=== PATIENT | female | born 1990 | race Caucasian/White ===

== ENCOUNTER 2017-09-30 08:18 | Inpatient (IN) ==
--- OUTSIDE RECORDS SUMMARY | 2017-09-30 08:29 | External Medical Summary | Continuity of Care Document ---
:1990 Author Organization [facility] Address [address] [place], [place] [address] Phone Allergies, Adverse Reactions, Alerts Substance Reaction Severity Status No Known Drug Allergies Unknown Active Medications Medication Instructions Dosage Effective Dates Status Comments (start - stop) + DHA 28 take 1 by oral route Not Available - Active mg iron-800 every day mcg-200 mg oral pack Problems Condition Effective Dates (start - stop) Clinical Status Irregular Menses - Encounter for suprvsn of normal - , third trimester 30 weeks gestation of - Irregular Menses Irregular Menses - Less than 8 weeks gestation of - Supervision of other high risk - pregnancies, first trimester 13 weeks gestation of - Supervision of other high risk - pregnancies, first trimester 13 weeks gestation of - Supervision of other high risk - pregnancies, first trimester Pap Smear Screening, Cervix - 10 weeks gestation of - Supervision of other high risk - pregnancies, second trimester 19 weeks gestation of - Supervision of other high risk - pregnancies, third trimester 33 weeks gestation of - Encounter for initial prescription of injectable contracep Encounter for test, result - negative Encounter for suprvsn of normal - , second trimester 19 weeks gestation of - Encounter for suprvsn of normal - , second trimester 24 weeks gestation of - Encounter for suprvsn of normal - , second trimester 17 weeks gestation of - Encounter for suprvsn of normal - , third trimester 33 weeks gestation of - Encntr for suprvsn of normal , unsp, unsp trimester Encntr for suprvsn of normal , unsp, unsp trimester Anxiety Disorder Active Procedures Procedure Date Unknown Results Test Name Date and Time Measure Units Reference Range Abnormal Flag Comments Unknown Advance Directives Directive Yes / No Effective Date File Name Unknown Encounters Encounter Practice Location Reason(s) Diagnoses Date Provider Care Team Description For Visit Members Cristopher Triana Encounter for Aug-0 Lianne Referring In Womens suprvsn of normal 7-201 Radha. Provider: Health PA, , third 8 700 Radha [address] [email or web address] weeks Medical Lianne L, 1522, gestation of [address] [place], 120, [place] , [place] [facility] 120, [place], [place], tel:[phone] [place], , [place]. [id number]. tel: tel: [phone] Cristopher [place] Supervision of Aug-0 Lianne In Womens Ultrasound other high risk 7-201 Radha. Health PA, pregnancies, 8 700 PO Box third [email or web address] Medical 1522, weeks gestation [facility] [place], 120, [id number], [place], [place], tel: [phone] , [place]. tel: [phone] Cristopher [place] Jul-3 Lianne In Womens 0-201 Radha. Health PA, 8 700 PO Box Medical 1522, [facility], [place], 120, [id number], [place], [place], tel:[phone] , [place]. tel: [phone] Cristopher Traina Encounter for Jul-1 Lianne In Womens suprvsn of normal 9-201 Radha. Health PA, , third 8 700 PO Box [email or web address] weeks Medical 1522, gestation of [facility] [place], 120, [id number], [place], tel:[phone] , [place]. tel: [phone] Cristopher [place] Encounter for Dec-0 Lianne In Womens suprvsn of normal 6-201 Radha. Health PA, , second 7 700 PO Box [email or web address] weeks Medical 1522, gestation of [facility], [place], 120, [id number], [place], tel:[phone] , [place]. tel: [phone] Cristopher [place] Encounter for Nov-0 Lianne Referring In Womens suprvsn of normal 1-201 Radha. Provider: Health PA, , second 7 700 Radha PO Box [email or web address] weeks Medical Lianne L, 1522, gestation of [address], [place], 120, [place] [id number], [place] [facility] 120, [place], tel:[phone] [place], , [place]. [id number]. tel: tel: [phone] Cristopher [place] Supervision of Nov-0 Lianne In Womens Ultrasound other high risk 1-201 Radha. Health PA, pregnancies, 7 700 PO Box second Medical 1522, [email or web address] weeks [facility], gestation of [place], 120, [id number], [place], [place], tel:[phone] , [place]. tel: [phone] Cristopher [place] Encounter for Oct-1 Lianne Referring In Womens suprvsn of normal 8-201 Radha. Provider: Health MICAELA, , second 7 700 Radha PO Box [email or web address] weeks Medical Lianne L, 1522, gestation of [address], [place], 120, [place] [id number], [place] [facility] 120, [place], tel:[phone] [place], , [place]. [id number]. tel: tel:[phone] Cristopher [place] Supervision of Sep-1 Lianne Referring In Womens other high risk 8-201 Radha. Provider: Health MICAELA, pregnancies, 7 700 Radha PO Box first [email or web address] Medical Lianne L, 1522, weeks gestation Center [address] [place] [address], of [place], 120, Center [id number], [place], [facility] 120, [place], tel:[phone] [place], , [place]. [id number]. tel: tel:[phone] Cristopher [place] Supervision of Lianne Referring In Womens Ultrasound other high risk 8-201 Radha. Provider: Health PA, pregnancies, 7 700 Radha PO Box first [email or web address] Medical Lianne L, 1522, weeks gestation Center [address] [place] [address], of [place], 120, Center [id number], [place] [facility] 120, [place], tel:[phone] [place], , [place]. [id number]. tel: tel:[phone] Cristopher [place] Supervision of Lianne Referring In Womens other high risk 0-201 Radha. Provider: Health PA, pregnancies, 7 700 Radha PO Box first Medical Lianne L, 1522, trimesterPap Center [address] [place] [address], Smear Screening, [place], [email or web address] weeks 120, Center [id number], gestation of [place] [facility] 120, [place], tel:[phone] [place], , [place]. [id number]. tel: tel:[phone] Cristopher [place] Irregular Menses [place] Referring In Womens -201 Isidra. Provider: Health MICAELA, 7 700 Radha PO Box Medical Lianne L, 1522, Center [address] [place] [address], [place], 120, Center [id number], [place] [facility] 120, [place], tel:[phone] [place], , [place]. [id number]. tel: tel:[phone] Cristopher [place] Irregular Lianne Referring In Womens Ultrasound MensesLess than 8 -201 Radha. Provider: Health PA, weeks gestation 7 700 Radha PO Box of Medical Lianne L, 1522, Center [facility] Dr Mili, [facility] [place], 120, Center [id number], [place], [facility] 120, [place], tel:[phone] [place], , [place]. [id number]. tel: tel: [phone] Associates [place] Irregular Menses Johann-2 Lianne In Womens 4-201 Radha. Health MICAELA, 7 700 PO Box Medical 1522, [place] [address] [place], [facility] [place], 120, [id number], [place], [place], tel:[phone] , [place]. tel: [phone] [facility] [place] Encntr for Johann-2 Lianne In Womens suprvsn of normal 0-201 Radha. Health MICAELA, , unsp, 7 700 PO Box unsp trimester Medical 1522, [place] [address] [place], [facility], 120, , [place], [place], tel:[phone] , [place]. tel: [phone] [facility] [place] Encntr for Johann-1 Norton Referring In Womens suprvsn of normal 7-201 Isidra. Provider: Health MICAELA, , unsp, 7 700 Radha PO Box unsp trimester Medical Lianne L, 1522, Center [address], [facility], 120, [place] [id number], [place], [facility] 120, [place], tel:[phone] [place], , [place]. [id number]. tel: tel: [phone] Associates [place] Encounter for Johann-0 Norton Referring In Womens initial 5-201 Isidra. Provider: Health MICAELA, prescription of 6 700 Isidra PO Box injectable Medical Errol J, 1522, [facility] Center [facility] berta Garces for , [facility], test, result 120, Center [id number], negative [place], [facility] 120, [place], tel:[phone] [place], , [place]. [id number]. tel: tel:[phone] [facility] [employer] 9-201 [facility], [address], [place], [place], [place], [place], [id number], , [place]. [place] tel: tel:[phone] Family History Family Member Diagnosis Age At Onset No family history of Colon Cancer No family history of Ovarian Cancer Mother Hypertension Maternal Grandmother Cardiovascular Disease Maternal Grandmother Diabetes mellitus Maternal Grandmother Hypertension Maternal Grandmother Stroke Paternal Grandmother Diabetes mellitus Mother Diabetes mellitus No family history of Breast Cancer No family history of Epilepsy Maternal Grandmother Renal disease No family history of Pulmonary Embolism No family history of Venous Thrombosis No family history of Lung Disease Sister Thyroid Disorder No family history of Osteoporosis Immunizations Vaccine Date Status Comments Tdap completed Source: New Immunization Record Influenza, injectable, completed Source: New Immunization Record quadrivalent, preservative free, 3 yrs or older Payers Payer name Insurance type Covered republican ID Authorization(s) [employer] - Medicaid [place] [id number] [employer] - [place] [id number] [employer] - Medicaid [place] [id number] Social History Type Description Quantity Date Captured Alcohol Use Details No Caffeine Use Details Unknown Tobacco Use Status Unknown Smoking Status Never smoker Vital Signs Date / Height Weight BMI Pulse Blood Temperature Respiratory Body Head BMI Time: Rate Pressure Rate Surface Circumference percentile Area Unknown Chief Complaint And Reason For Visit Unknown Chief Complaint And Reason For Visit Reason For Referral Reason For Referral Unknown Plan Of Care Date Type Action Status Goal Lifestyle education regarding completed diet Goal Lifestyle education regarding completed diet Appointment Alisa Velazquez BOOKED Appointment Alisa Velazquez BOOKED Future Order: Radiology Order Nuchal Translucency ([id number]) Ordered Future Order: Radiology Order Complete OB Ultrasound > 14 Ordered Weeks ([id number]) Future Order: Radiology Order Ultrasound OB Follow-up ([id number]) Ordered Date Type Problem Goal Intervention Status Start Date Unknown. History Of Present Illness Encounter Date Complaint History Of Present Illness This patient has no known history of present illness Functional Status Encounter Date Functional Assessment Cognitive Assessment Unknown Medications Administered Medication Instructions Dosage Effective Dates (start - stop) Status Comments Drug Treatment Unknown Instructions Date Instruction Additional Information HIV and other routine tests risk factors identified by history anticipated course of care nutrition and weight gain counseling, special diet toxoplasmosis precautions (cats / raw meat) sexual activity exercise indications for ultrasound influenza vaccine environmental / work hazards travel tobacco (ask, advise, assess, assist and arrange) alcohol illicit / recreational drugs use of any medications (including supplements, vitamins, herbs, OTC drugs) smoking counseling domestic violence seat belt use childbirth classes / hospital facilities hospital registration genetic testing new ob handbook Giving encouragement to exercise Related to Body mass index 30.0-30.9 Lifestyle education regarding diet Related to Body mass index 30.0-30.9 Giving encouragement to exercise Related to Body mass index 30.0-30.9 Lifestyle education regarding diet Related to Body mass index 30.0-30.9
--- OUTSIDE RECORDS SUMMARY | 2017-09-30 08:29 | External Medical Summary | Continuity of Care Document ---
:1990 Author Organization [facility] Address [address] [place], [place] [address] Phone Allergies, Adverse Reactions, Alerts Substance Reaction Severity Status No Known Drug Allergies Unknown Active Medications Medication Instructions Dosage Effective Dates (start - Status Comments stop) ORAL TABLET - Active Problems Condition Effective Dates (start - stop) Clinical Status Irregular Menses - Encounter for suprvsn of normal - , second trimester 19 weeks gestation of - Irregular Menses Irregular [...] 19 weeks gestation of - Encounter for initial prescription of injectable contracep Encounter for test, result - negative Encounter for suprvsn of normal - , second trimester 17 weeks gestation of - Encntr for suprvsn of normal , unsp, unsp trimester Encntr for suprvsn of normal , unsp, unsp trimester Anxiety Disorder Active Procedures Procedure Date OB Visit No Charge Immuniz admnin, 1 vac, sngl/combo 19 Yrs + Flu Vaccine - Quadrivalent Results Test Name Date and Time Measure Units Reference Range Abnormal Flag Comments Unknown Advance Directives Directive Yes / No Effective Date File Name Unknown Encounters Encounter Practice Location Reason(s) Diagnoses Date Provider Care Team Description For Visit Members Crsitopher Triana Encounter for Nov-0 Lianne Referring In Womens suprvsn of normal 1-201 Radha. Provider: Yossi HINOJOSA, , second 7 700 Radha PO Box [email or web address] weeks Medical Lianne L, 1522, gestation of Center [address] [place] [address], [place], 120, [place] , [place] [facility] 120, [place], tel:[phone] [place], , [place]. [id number]. tel: tel:[phone] Cristopher Tri[place] Supervision of Nov-0 Lianne In Womens Ultrasound other high risk 1-201 Radha. Health MICAELA, pregnancies, 7 700 PO Box second Medical 1522, [email or web address] weeks [facility], gestation of [place], 120, [id number], [email or web address]], tel:[phone] , [place]. tel: [phone] Cristopher [place] Encounter for Oct-1 Lianne Referring In Womens suprvsn of normal 8-201 Radha. Provider: Yossi HINOJOSA, , second 7 700 Radha PO Box [email or web address] weeks Medical Lianne L, 1522, gestation of Center [address] [place] [address], [place], 120, [place] [id number], [place] [facility] 120, [place], tel:[phone] [place], , [place]. [id number]. tel: tel:[phone] Cristopher [place] Supervision of Sep-1 Lianne Referring In Womens other high risk 8-201 Radha. Provider: Health MICAELA, pregnancies, 7 700 Radha PO Box first [email or web address] Medical Lianne L, 1522, weeks gestation Center [address] [place] [address], of [place], 120, Center [id number], [place] [facility] 120, [place], tel:[phone] [place], , [place]. [id number]. tel: tel:[phone] Cristopher [place] Supervision of Lianne Referring In Womens Ultrasound other high risk 8-201 Radha. Provider: Health MICAELA, pregnancies, 7 700 Radha PO Box first [email or web address] Medical Lianne L, 1522, weeks gestation Center [address] [place], of , [place], 120, Center [id number], [place], [facility] 120, [place], tel: [phone] [place], , [place]. [id number]. tel: tel:[phone] Cristopher [place] Supervision of Lianne Referring In Womens other high risk 0-201 Radha. Provider: Health MICAELA, pregnancies, 7 700 Radha PO Box first Medical Lianne L, 1522, trimesterPap Center [address] [place] [address], Smear Screening, , [facility] [place], [id number] weeks 120, Center [id number], gestation of [place], [facility] 120, [place], tel:[phone] [place], , [place]. [id number]. tel: tel:[phone] [facility] [place] Irregular Menses [place] Referring In Womens -201 Isidra. Provider: Yossi HINOJOSA, 7 700 Radha PO Box Medical Lianne L, 1522, Center [facility] Dr M[place], [facility] [place], 120, Center [id number], [place], [facility] 120, [place], tel:[phone] [place], , [place]. [id number]. tel: tel:[phone] Cristopher Tri[place] Irregular Lianne Referring In Womens Ultrasound MensesLess than 8 - Radha. Provider: Yossi HINOJOSA, weeks gestation 7 700 Radha PO Box of [place] Abdalla L, 1522, Center [facility] Dr Mili, [facility] [place], 120, Center [id number], [place], [facility] 120, [place], tel:[phone] [place], , [place]. [id number]. tel: tel:[phone] Cristopher [place] Irregular Menses Johann-2 Lianne In Womens 4-201 Radha. Health PA, 7 700 PO Box Medical 1522, [place] Dr [place], [facility] [place], 120, [id number], [place], [place], tel: [phone] , [place]. tel: [phone] [facility] [place] Encntr for Johann-2 Lianne In Womens suprvsn of normal 0-201 Radha. Health PA, , unsp, 7 700 PO Box unsp trimester Medical 1522, [place] Dr [place], [facility] [place], 120, [id number], [place], [place], tel: [phone] , [place]. tel: [phone] [facility] [place] Encntr for Johann-1 [place] Referring In Womens suprvsn of normal 7-201 Isidra. Provider: Health MICAELA, , unsp, 7 700 Radha PO Box unsp trimester Medical Lianne L, 1522, [place] [address] [address] Mili, [facility], 120, [place] , [place], [facility] 120, [place], tel: [phone] [place], , [place]. [id number]. tel: tel: [phone] [facility] [place] Encounter for Johann-0 Norton Referring In Womens initial 5-201 Isidra. Provider: Health PA, prescription of 6 700 Isidra PO Box injectable Medical Errol J, 1522, [facility] Center [facility] [place], berta for , [facility], test, result 120, [place] , negative [place] [facility] 120, [place], tel: [phone] [place], , [place]. [id number]. tel: tel: [phone] [facility] [place] Feb- Nicole In Womens 9-201 Pollo. Health PA, 1 3232 [address] Maxim, 1522, [place], [place], [place], [place], [id number], , [place]. [place] tel: tel:[phone] Family History Family Member Diagnosis Age At [...] of Osteoporosis Immunizations Vaccine Date Status Comments Influenza, injectable, completed Source: New Immunization Record quadrivalent, preservative free, 3 yrs or older Payers Payer name Insurance type Covered constitution party ID Authorization(s) [employer] - Medicaid [place] [id number] [employer] - Medicaid [place] [id number] Social History Type Description Quantity Date Captured Alcohol Use Details No Caffeine Use Details Unknown Tobacco Use Status Unknown Smoking Status Never smoker Vital Signs Date / Height Weight BMI Pulse Blood Temperature Respiratory Body Head BMI Time: Rate Pressure Rate Surface Circumference percentile Area 174.20 28.1 115/ lbs 1 mm[Hg] 1:15 kg/m PM eter (2) Chief Complaint And Reason For Visit Unknown Chief Complaint And Reason For Visit Reason For Referral Reason For Referral Unknown Plan Of Care Date Type Action Status Goal Lifestyle education regarding completed diet Goal Lifestyle education regarding completed diet Appointment Alisa Velazquez BOOKED Future Order: Radiology Order Nuchal Translucency ([id number]) Ordered Future Order: Radiology Order Complete OB Ultrasound > 14 Ordered Weeks ([id number]) Date Type Problem Goal Intervention Status Start [...]
--- OUTSIDE RECORDS SUMMARY | 2017-09-30 08:29 | External Medical Summary | Continuity of Care Document ---
:1990 Author Organization [facility] Address [address] [place], [place] [id number] Phone Allergies, Adverse Reactions, Alerts Substance Reaction Severity Status No Known Drug Allergies Unknown Active Medications Medication Instructions Dosage Effective Dates (start - Status Comments stop) ORAL TABLET - Active Problems Condition Effective Dates (start - stop) Clinical Status Irregular Menses - Supervision of other high risk - [...] Cervix - 10 weeks gestation of - Encounter for initial [...] trimester Anxiety Disorder Active Procedures Procedure Date Ultrasound exam of preg uterus, complete Results Test Name Date and Time Measure Units Reference Range Abnormal Flag Comments Unknown Advance Directives Directive Yes / No Effective Date File Name Unknown Encounters Encounter Practice Location Reason(s) Diagnoses Date Provider Care Team Description For Visit Members Cristopher [place] Encounter for Nov-0 Lianne Referring In Womens suprvsn of normal 1-201 Radha. Provider: Yossi HINOJOSA, , second 7 700 Radha [address] [email or web address] weeks Medical Lianne L, 1522, gestation of Center [address] [place] [address], [place], 120, Center , [place], [facility] 120, [place], tel:[phone] [place], , [place]. [id number]. tel: tel:[phone] Cristopher [place] Supervision of Nov-0 Lianne In Womens Ultrasound other high risk 1-201 Radha. Health MICAELA, pregnancies, 7 700 PO Box second Medical 1522, [email or web address] weeks [facility], gestation of [place], 120, [id number], [place], [place], tel:[phone] , [place]. tel: [phone] Cristopher [place] Encounter for Oct-1 Lianne Referring In Womens suprvsn of normal 8-201 Radha. Provider: Yossi HINOJOSA, , second 7 700 Radha PO Box [email or web address] weeks Medical Lianne L, 1522, gestation of [address], [place], 120, [place] [id number], [place] [facility] 120, [place], tel:[phone] [place], , [place]. [id number]. tel: tel:[phone] Cristopher [place] Supervision of Sep-1 Lianne Referring In Womens other high risk 8-201 Radha. Provider: Health MICAELA, pregnancies, 7 700 Radha PO Box first [email or web address] Medical Lianne L, 1522, weeks gestation [address], of [place], 120, [place] [id number], [place], [facility] 120, [place], tel:[phone] [place], , [place]. [id number]. tel: tel:[phone] Cristopher [place] Supervision of Sep-1 Lianne Referring In Womens Ultrasound other high risk 8-201 Radha. Provider: Health MICAELA, pregnancies, 7 700 Radha PO Box first [email or web address] Medical Lianne L, 1522, weeks gestation [facility] [place], of , [facility] [place], 120, Center [id number], [place], [facility] 120, [place], tel:[phone] [place], , [place]. [id number]. tel: tel:[phone] Cristopher [place] Supervision of Lianne Referring In Womens other high risk 0-201 Radha. Provider: Health MICAELA, pregnancies, 7 700 Radha PO Box first Medical Lianne L, 1522, trimesterPap Center [facility] [place], Smear Screening, , [facility] [place], [email or web address] weeks 120, Center , gestation of [place], [facility] 120, [place], tel:[phone] [place], , [place]. [id number]. tel: tel:[phone] Associates [place] Irregular Menses Norton Referring In Womens 1-201 Isidra. Provider: Yossi HINOJOSA, 7 700 Radha PO Box Medical Lianne L, 1522, Center [address], [place] [facility], 120, Center [id number], [place] [facility] 120, [place], tel:[phone] [place], , [place]. [id number]. tel: tel:[phone] Associates [place] Irregular 3 Lianne Referring In Womens Ultrasound MensesLess than 8 -201 Radha. Provider: Yossi HINOJOSA, weeks gestation 7 700 Radha PO Box of Medical Lianne L, 1522, Center [facility] Dr Mili, [place] [facility], 120, Center [id number], [place], [facility] 120, [place], tel:[phone] [place], , [place]. [id number]. tel: tel:[phone] Associates [place] Irregular Menses Jan-2 Lianne In Womens 4-201 Radha. Health PA, 7 700 PO Box Medical 1522, [place] Dr Mili, [facility] [place], 120, [id number], [place], [place], tel: [phone] , [place]. tel: [phone] Cristopher [place] Encntr for Johann-2 Lianne In Womens suprvsn of normal 0-201 Radha. Health PA, , unsp, 7 700 PO Box unsp trimester Medical 1522, [place] Dr Mili, [facility], 120, [id number], [place], [place], tel: [phone] , [place]. tel: [phone] Cristopher [place] Encntr for Johann-1 Norton Referring In Womens suprvsn of normal 7-201 Isidra. Provider: Health PA, , unsp, 7 700 Radha PO Box unsp trimester Medical Lianne L, 1522, [place] [address] Dr Mili, [place] [facility], 120, [place] , [place] [facility] 120, [place], tel: [phone] [place], , [place]. [id number]. tel: tel: [phone] Cristopher [place] Encounter for Johann-0 Norton Referring In Womens initial 5-201 Isidra. Provider: Health PA, prescription of 6 700 Isidra PO Box injectable Medical Norton J, 1522, [facility] Center [address] [place] [address], for , [place] [facility], test, result 120, [place] , negative [place] [facility] 120, [place], tel: [phone] [place], , [place]. [id number]. tel: tel: [phone] [facility] Feb- [place] In Womens 9-201 Pollo. Health PA, [address], 1522, [place], [id number] , , [place]. [place] tel: tel: [phone] Family History Family Member Diagnosis Age At [...] Authorization(s) [employer] - Medicaid [place] [id number] [employer] - Medicaid [place] [id number] Social History Type Description Quantity Date Captured Unknown Vital Signs Date / Height Weight BMI [...] Alisa Velazquez BOOKED Future Order: Radiology Order Complete OB Ultrasound > 14 Ordered Weeks ([id number]) Future Order: Radiology Order Nuchal Translucency ([id number]) Ordered Date Type Problem Goal Intervention Status [...]
--- OUTSIDE RECORDS SUMMARY | 2017-09-30 08:32 | External Medical Summary | Continuity of Care Document ---
:1990 Author Organization [facility] Address [address] [place], [place] [id number] Phone Allergies, Adverse Reactions, Alerts Substance Reaction [...] 33 weeks gestation of - Encounter for suprvsn [...] suprvsn of normal - , third trimester 35 weeks gestation of - Encntr for suprvsn of normal , unsp, unsp trimester Encntr for suprvsn of normal , unsp, unsp trimester Anxiety Disorder Active Procedures Procedure Date OB Visit No Charge - COATER SLATE Immuniz admnin, 1 vac, sngl/combo 19 Yrs + TDAP VACCINE >7 IM Results Test Name Date and Time Measure Units Reference Range Abnormal Flag Comments Unknown Advance Directives Directive Yes / No Effective Date File Name Unknown Encounters Encounter Practice Location Reason(s) Diagnoses Date Provider Care Team Description For Visit Members Cristopher [place] Encounter for b-2 Lianne In Womens suprvsn of normal 1-201 Radha. Health MICAELA, , third 8 700 PO Box [email or web address] weeks Medical 1522, gestation of [facility] [place], 120, [id number], [facility], tel: [phone] , [place]. tel: [phone] Cristopher [place] Encounter for Feb-0 Lianne Referring In Womens suprvsn of normal 7-201 Radha. Provider: Health MICAELA, , third 8 700 Radha PO Box [email or web address] weeks Medical Lianne L, 1522, gestation of [address] [place], 120, [place] , [place] [address], [place], tel: [phone] [place] [phone] , . [id number]. tel: tel: [phone] Cristopher [place] Supervision of Feb-0 Lianne In Womens Ultrasound other high risk 7-201 Radha. Health PA, pregnancies, 8 700 PO Box third [email or web address] Medical 1522, weeks gestation [facility] [place], 120, [id number], [facility] [place], tel:+ [phone] , [place]. tel: [phone] Cristopher [place] Encounter for Prudencio-1 Lianne In Womens suprvsn of normal 9-201 Radha. Health PA, , third 8 700 PO Box [email or web address] weeks Medical 1522, gestation of [facility] [place], 120, [id number], [place], [place], tel:[phone] , [place]. tel: [phone] Cristopher [place] Encounter for Dec-0 Lianne In Womens suprvsn of normal 6-201 Radha. Health PA, , second 7 700 PO Box [email or web address] weeks Medical 1522, gestation of [facility], [place], 120, [id number], [place], [place], tel:[phone] , [place]. tel: [phone] Cristopher [place] Encounter for Nov-0 Lianne Referring In Womens suprvsn of normal 1-201 Radha. Provider: Health PA, , second 7 700 Radha PO Box [email or web address] weeks Medical Lianne L, 1522, gestation of [address], [place], 120, [place] , [place] [facility] 120, [place], [place], tel:[phone] [place], , [place]. [id number]. tel: tel: [phone] Cristopher [place] Supervision of Nov-0 Lianne In Womens Ultrasound other high risk 1-201 Radha. Health PA, pregnancies, 7 700 PO Box second Medical 1522, [email or web address] weeks [facility], gestation of [place], 120, [id number], [facility] [place], tel:[phone] , [place]. tel: [phone] Cristopher [place] Encounter for Oct-1 Lianne Referring In Womens suprvsn of normal 8-201 Radha. Provider: Health PA, , second 7 700 Radha PO Box [email or web address] weeks Medical Lianne L, 1522, gestation of [address], [place], 120, Center [id number], [place], [facility] 120, [place], tel: [phone] [place], , [place]. [id number]. tel: tel:[phone] Cristopher [place] Supervision of Lianne Referring In Womens other high risk 8-201 Radha. Provider: Health PA, pregnancies, 7 700 Radha PO Box first [email or web address] Medical Lianne L, 1522, weeks gestation Center [address] [place] [address], of Dr [facility], 120, Center [id number], [facility], [place], tel:[phone] [place], , [place]. [id number]. tel: tel:[phone] Cristopher [place] Supervision of Lianne Referring In Womens Ultrasound other high risk 8-201 Radha. Provider: Health PA, pregnancies, 7 700 Radha PO Box first [email or web address] Medical Lianne L, 1522, weeks gestation Center [address] [place] [address], of Dr [facility], 120, Center [id number], [facility] 120, [place], tel:+ [phone] [place], , [place]. [id number]. tel: tel:[phone] Cristopher [place] Supervision of Lianne Referring In Womens other high risk 0-201 Radha. Provider: Health [place], pregnancies, 7 700 Radha PO Box first Medical Lianne L, 1522, trimesterPap Center [address] [place] [address]ta, Smear Screening, Dr [facility] [place], [id number] weeks 120, Center [id number], gestation of [place], [facility] 120, [place], tel:+ [phone] [place], , [place]. [id number]. tel: tel:[phone] Cristopher [place] Irregular Menses Norton Referring In Womens 1-201 Isidra. Provider: Health [place], 7 700 Radha PO Box Medical Lianne L, 1522, Center [facility] [place], Dr [facility], 120, Center [id number], [facility] 120, [place], tel:[phone] [place], , [place]. [id number]. tel: tel: [phone] Cristopher [place] Irregular Johann-3 Lianne Referring In Womens Ultrasound MensesLess than 8 1-201 Radha. Provider: Health MICAELA, weeks gestation 7 700 Radha PO Box of Medical Lianne L, 1522, Center [address], [facility], 120, [place] [id number], [facility] 120, [place], tel:[phone] [place], , [place]. [id number]. tel: tel: [phone] Cristopher [place] Irregular Menses Johann-2 Lianne In Womens 4-201 Radha. Health MICAELA, 7 700 PO Box Medical 1522, [address], [facility], 120, [id number], [place], [place], tel:[phone] , [place]. tel: [phone] Cristopher [place] Encntr for Johann-2 Lianne In Womens suprvsn of normal 0-201 Radha. Health MICAELA, , unsp, 7 700 PO Box unsp trimester Medical 1522, Center Dr Mili, [facility], 120, [id number], [place], [place], tel:[phone] , [place]. tel: [phone] Cristopher [place] Encntr for Johann-1 Norton Referring In Womens suprvsn of normal 7-201 Isidra. Provider: Health MICAELA, , unsp, 7 700 Radha PO Box unsp trimester Medical Lianne L, 1522, Center [address], [facility], 120, [place] [id number], [facility] 120, [place], tel:[phone] [place], , [place]. [id number]. tel: tel: [phone] Cristopher [place] Encounter for Johann-0 Norton Referring In Womens initial 5-201 Isidra. Provider: Health PA, prescription of 6 700 Isidra PO Box injectable Medical Errol Gan, 1522, [facility] Center 700 [place], r for , [facility] [place], test, result 120, [place] [id number], negative [place] 120, [place], tel:[phone] [place], [address] , [place]. [id number]. tel: tel:[phone] [facility] In Womens 9-201 Pollo. Health PA, 1 3232 E [address] Maxim, 1522, [place], [place], [place], [id number], , [place]. [place] tel: tel: [phone] Family History Family Member Diagnosis Age At [...] Authorization(s) [employer] - Medicaid [place] [id number] [employer] - Medicaid [place] [id number] [employer] - Medicaid MC [id number] Social History Type Description Quantity Date Captured Alcohol Use Details No Caffeine Use Details Unknown Tobacco Use Status Unknown Smoking Status Never smoker Vital Signs Date / Height Weight BMI Pulse Blood Temperature Respiratory Body Head BMI Time: Rate Pressure Rate Surface Circumference percentile Area 184.50 29.7 lbs 8 mm[Hg] 11:39 kg/m AM eter (2) Chief Complaint And Reason For Visit Unknown Chief Complaint And Reason For Visit Reason For Referral Reason For Referral Unknown Plan Of Care Date Type Action Status Goal Lifestyle education regarding completed diet Goal Lifestyle education regarding completed diet Appointment Alisa Velazquez BOOKED Appointment Alisa Velazquez BOOKED Appointment Alisa Velazquez BOOKED Appointment Alisa Velazquez BOOKED Future Order: Radiology Order Nuchal Translucency ([id number]) Ordered Future Order: Radiology Order Complete OB Ultrasound > 14 Ordered Weeks ([id number]) Future Order: Radiology Order Ultrasound OB Follow-up ([id number]) Ordered Date Type Problem Goal Intervention Status [...]
--- OUTSIDE RECORDS SUMMARY | 2017-09-30 08:32 | External Medical Summary | Continuity of Care Document ---
:1990 Author Organization [facility] Address [address] [place], [place] [id number] Phone Allergies, Adverse Reactions, Alerts Substance Reaction Severity Status No Known Drug Allergies Unknown Active Medications Medication Instructions Dosage Effective Dates (start - Status Comments stop) ORAL TABLET - Active Problems Condition Effective Dates (start - stop) Clinical Status Irregular Menses - Irregular Menses Irregular Menses - Less [...] Provider Care Team Description For Visit Members [facility] [place] Encounter for Nov-0 Lianne Referring In Womens suprvsn of normal 1-201 Radha. Provider: Health MICAELA, , second 7 700 Radha PO Box [email or web address] weeks Medical Lianne L, 1522, gestation of Center [address] [place] [address], [place], 120, Center [id number], [place] 120, [place], tel:[phone] [place], , [place]. [id number]. tel: tel:[phone] Cristopher [place] Supervision of Nov-0 Lianne In Womens Ultrasound other high risk 1-201 Radha. Health MICAELA, pregnancies, 7 700 PO Box second Medical 1522, [email or web address] weeks [place], gestation of [place], 120, , [place], [place], tel:[phone] , [place]. tel: [phone] Cristopher [place] Encounter for Oct-1 Lianne Referring In Womens suprvsn of normal 8-201 Radha. Provider: Yossi HINOJOSA, , second 7 700 Radha PO Box [email or web address] weeks Medical Lianne L, 1522, gestation of [address], [place], 120, [place] [id number], [place] [facility] 120, [place], tel:[phone] [place], , [place]. [id number]. tel: tel:[phone] Cristopher [place] Oct-1 Lianne In Womens 6-201 Radha. Health MICAELA, 7 700 PO Box Medical 1522, [place], [place], 120, [id number], [place], [place], tel:[phone] , [place]. tel: [phone] Cristopher [place] Supervision of Sep-1 Lianne Referring In Womens other high risk 8-201 Radha. Provider: Health MICAELA, pregnancies, 7 700 Radha PO Box first [email or web address] Medical Lianne L, 1522, weeks [facility], of [place], 120, [place] [id number], [place] [facility] 120, [place], tel:+ [phone] [place], , [place]. [id number]. tel: tel:[phone] Cristopher [place] Supervision of Lianne Referring In Womens Ultrasound other high risk 8-201 Radha. Provider: Health MICAELA, pregnancies, 7 700 Radha PO Box first [email or web address] Medical Lianne L, 1522, weeks gestation Center [address] [place], [place] [address]ta, of , [facility] [place], 120, Center [id number], [place], [facility] 120, [place], tel:+ [phone] [place], , [place]. [id number]. tel: tel:[phone] Cristopher [place] Supervision of Lianne Referring In Womens other high risk 0-201 Radha. Provider: Health MICAELA, pregnancies, 7 700 Radha PO Box first Medical Lianne L, 1522, trimesterPap Center [facility] [place], Smear Screening, , [facility] [place], [id number] weeks 120, Center [id number], gestation of [place], [facility] 120, [place], tel:+ [phone] [place], , [place]. [id number]. tel: tel:[phone] Cristopher [place] Irregular Menses Norton Referring In Womens -201 Isidra. Provider: [facility] hospital, 7 700 Radha PO Box Medical Lianne L, 1522, Center [facility] Center Dr Mili [facility] [place], 120, [place] [id number], [place], [facility] 120, [place], tel:+ [phone] [place], , [place]. [id number]. tel: tel:[phone] Cristopher [place] Irregular Lianne Referring In Womens Ultrasound MensesLess than 8 - Radha. Provider: Yossi HINOJOSA, weeks gestation 7 700 Radha PO Box of Medical Lianne L, 1522, Center [facility] Center Dr Mili [facility] [place], 120, Center [id number], [place], [facility] 120, [place], tel:[phone] [place], , [place]. [id number]. tel: tel: [phone] Cristopher [place] Irregular Menses Johann-2 Lianne In Womens 4-201 Radha. Health PA, 7 700 PO Box Medical 1522, [place] Dr Mili, [facility] [place], 120, [id number], [place], [place], tel:[phone] , [place]. tel: [phone] Associates [place] Encntr for Johann-2 Lianne In Womens suprvsn of normal 0-201 Radha. Health PA, , unsp, 7 700 PO Box unsp trimester Medical 1522, [place] Dr Mili, [facility], 120, [id number], [place], [facility], tel:[phone] , [place]. tel: [phone] Cristopher [place] Encntr for Johann-1 Norton Referring In Womens suprvsn of normal 7-201 Isidra. Provider: Health PA, , unsp, 7 700 Radha PO Box unsp trimester Medical Lianne L, 1522, Center [facility] Center Dr Mili, [facility] [place], 120, [place] , [place] [facility] 120, [place], tel:[phone] [place], , [place]. [id number]. tel: tel: [phone] Cristopher [place] Encounter for Johann-0 Norton Referring In Womens initial 5-201 Isidra. Provider: Health PA, prescription of 6 700 Isidra PO Box injectable Medical [place] J, 1522, [facility] 700 [place], berta for , [facility], test, result 120, [place] , negative [place] [facility] 120, [place], tel:[phone] [place], , [place]. [id number]. tel: tel: [phone] [facility] Aug-2 [place] In Womens 9-201 Pollo. Health PA, 1 32[address], 1522, [place], [place], [place], [id number], , [place]. [place] tel: tel:[phone] Family History Family Member Diagnosis Age At [...] older Payers Payer name Insurance type Covered green party ID Authorization(s) [employer] - Medicaid [place] [id number] [employer] - Medicaid [place] [id number] Social History Type Description Quantity Date Captured [...] BOOKED Future Order: Radiology Order Nuchal Translucency ([id number]) Ordered Future Order: Radiology Order Complete OB Ultrasound > 14 Ordered Weeks ([id number]) Date Type Problem Goal Intervention Status Start [...]
--- OUTSIDE RECORDS SUMMARY | 2017-09-30 08:32 | External Medical Summary | Continuity of Care Document ---
:1990 Author Organization [facility] [employer] [facility] Address [address] [place], [place] [id number] Phone Allergies, Adverse Reactions, Alerts Substance Reaction [...] For Visit Members Cristopher [place] Encounter for Dec-0 Lianne In Womens suprvsn of normal 6-201 Radha. Health PA, , second 7 700 PO Box weeks Medical 1522, gestation of [facility], [place], 120, , [place], [place], tel:[phone] , [place]. tel: [phone] Cristopher [place] Encounter for Nov-0 Lianne Referring In Womens suprvsn of normal 1-201 Radha. Provider: Health MICAELA, , second 7 700 Radha PO Box [email or web address] weeks Medical Lianne L, 1522, gestation of [address], [place], 120, [place] [id number], [place] [facility] 120, [place], tel:[phone] [place], , [place]. [id number]. tel: tel:[phone] Cristopher [place] Supervision of Nov-0 Lianne In Womens Ultrasound other high risk 1-201 Radha. Health PA, pregnancies, 7 700 PO Box second Medical 1522, [email or web address] weeks [facility], gestation of [place], 120, , [place], [place], tel:[phone] , [place]. tel: [phone] Cristopher [place] Encounter for Oct-1 Lianne Referring In Womens suprvsn of normal 8-201 Radha. Provider: Health MICAELA, , second 7 700 Radha PO Box weeks Medical Lianne L, 1522, gestation of [address], [place], 120, [place] [id number], [place] [facility] 120, [place], tel:[phone] [place], , [place]. [id number]. tel: tel:[phone] Cristopher [place] Oct-1 Lianne In Womens 6-201 Radha. Health MICAELA, 7 700 PO Box Medical 1522, [place], [place], 120, [id number], [place], [place], tel: [phone] , [place]. tel: [phone] Cristopher [place] Supervision of Lianne Referring In Womens other high risk 8-201 Radha. Provider: Health [place], pregnancies, 7 700 Radha PO Box first [email or web address] Medical Lianne L, 1522, weeks gestation Center [address] [place] [address], of [place], 120, Center [id number], [place], [facility] 120, [place], tel:[phone] [place], , [place]. [id number]. tel: tel:[phone] Cristopher [place] Supervision of Lianne Referring In Womens Ultrasound other high risk 8-201 Radha. Provider: Health [place], pregnancies, 7 700 Radha PO Box first [email or web address] Medical Lianne L, 1522, weeks gestation Center [address] [place] [address], of [place], 120, [place] [id number], [place] [facility] 120, [place], tel:[phone] [place], , [place]. [id number]. tel: tel:[phone] Cristopher [place] Supervision of Lianne Referring In Womens other high risk 0-201 Radha. Provider: Health [place], pregnancies, 7 700 Radha PO Box first Medical Lianne L, 1522, trimesterPap Center [address] [place], [place] [address]ta, Smear Screening, [place], [email or web address] weeks 120, Center [id number], gestation of [place], [facility] 120, [place], tel:[phone] [place], , [place]. [id number]. tel: tel:[phone] Cristopher [place] Irregular Menses Norton Referring In Womens 1-201 Isidra. Provider: Health [place], 7 700 Radha PO Box Medical Lianne L, 1522, Center [facility] [place], [place], 120, Center [id number], [place] [facility] 120, [place], tel:[phone] [place], , [place]. [id number]. tel: tel: [phone] Cristopher [place] Irregular Johann-3 Lianne Referring In Womens Ultrasound MensesLess than 8 1-201 Radha. Provider: Yossi HINOJOSA, weeks gestation 7 700 Radha PO Box of Medical Lianne L, 1522, Center [facility] [address] [place], [facility] [place], 120, [place] [id number], [place], [facility] 120, [place], [place], tel:[phone] [place], , [place]. [id number]. tel: tel: [phone] Cristopher [place] Irregular Menses Johann-2 Lianne In Womens 4-201 Radha. Yossi HINOJOSA, 7 700 PO Box Medical 1522, [place] [address] [place], [facility], 120, [id number], [place], [place], tel:[phone] , [place]. tel: [phone] Cristopher [place] Encntr for Johann-2 Lianne In Womens suprvsn of normal 0-201 Radha. Yossi HINOJOSA, , unsp, 7 700 PO Box unsp trimester Medical 1522, [place] [address] [place], [facility], 120, [id number], [place], [place], tel:[phone] , [place]. tel: [phone] Cristopher [place] Encntr for Johann-1 Norton Referring In Womens suprvsn of normal 7-201 Isidra. Provider: Yossi HINOJOSA, , unsp, 7 700 Radha PO Box unsp trimester Medical Lianne L, 1522, Center [facility] [address] [place], [facility] [place], 120, [place] [id number], [place], [facility] 120, [place], tel:[phone] [place], , [place]. [id number]. tel: tel: [phone] Cristopher [place] Encounter for Johann-0 Norton Referring In Womens initial 5-201 Isidra. Provider: Yossi HINOJOSA, prescription of 6 700 Isidra PO Box injectable Medical Norton J, 1522, contracepEncounte Center 700 [place], r for [place] [facility] [place], test, result 120, [place] [id number], negative [place] 120, [place], [place], tel: [phone] [place], [phone] , [place]. [id number]. tel: tel:[phone] [facility] Nicole In Women 9-201 [facility], [address], 1522, [place], [place], [place], [place], [id number], , [place]. [place] tel: tel: [phone] Family History Family Member Diagnosis Age At [...] Authorization(s) [employer] - Medicaid [place] [id number] [employer] - Medicaid [place] [id number] Social History Type Description Quantity Date Captured [...] BOOKED Future Order: Radiology Order Nuchal Translucency (12060) Ordered Future Order: Radiology Order Complete OB Ultrasound > 14 Ordered Weeks ([id number]) Date Type Problem Goal Intervention Status Start [...]
--- OUTSIDE RECORDS SUMMARY | 2017-09-30 08:34 | External Medical Summary | Continuity of Care Document ---
:1990 Author Organization [facility] [employer] [facility] Address [address] [place], [place] [id number] Phone Allergies, Adverse Reactions, Alerts Substance Reaction [...] third trimester 35 weeks gestation of - Encounter for suprvsn [...] suprvsn of normal - , third trimester 37 weeks gestation of - Encounter for suprvsn of normal - , third trimester 38 weeks gestation of - Encounter for suprvsn of normal - , third trimester 36 weeks gestation of - Encounter for suprvsn of normal - , third trimester 33 weeks gestation of - Encntr for suprvsn of normal , unsp, unsp trimester Encntr for suprvsn of normal , unsp, unsp trimester Anxiety Disorder Active Procedures Procedure Date OB Visit No Charge Results Test Name Date and Time Measure Units Reference Range Abnormal Flag Comments Panel Description: STREPTOCOCCUS, GROUP B CULTURE STREPTOCOCCUS, GROUP SEE NOTE STREPTOCOCCUS, GROUP B CULTURE B CULTURE 13:44:00 MICRO NUMBER: [id number] TEST STATUS: FINAL SPECIMEN SOURCE: VAGINAL/ANORECTAL SPECIMEN QUALITY: ADEQUATE RESULT: No group B Streptococcus isolatedREPORT COMMENT:FASTING:UNKNOWNTest performed at [email or web address] [id number] [place] [address]Uwvesjfp: DARIUS RAMACHANDRAN DO,MPH Advance Directives Directive Yes / No Effective Date File Name Unknown Encounters Encounter Practice Location Reason(s) Diagnoses Date Provider Care Team Description For Visit Members Cristopher [place] Encounter for Mar-1 Lianne In Womens suprvsn of normal 4-201 Radha. Health PA, , third 8 700 PO Box [email or web address] weeks Medical 1522, gestation of [facility] [place], 120, [id number], [place], tel:[phone] , . tel:[phone] Cristopher [place] Encounter for Mar-0 Lianne In Womens suprvsn of normal 7-201 Radha. Health PA, , third 8 700 PO Box [email or web address] weeks Medical 1522, gestation of [facility], [place], 120, [id number], [place], [place], tel:[phone] , [place]. tel: [phone] Cristopher [place] Encounter for Feb-2 Lianne In Womens suprvsn of normal 8-201 Radha. Health PA, , third 8 700 PO Box [email or web address] weeks Medical 1522, gestation of [facility], [place], 120, [id number], [place], [place], tel:[phone] , [place]. tel: [phone] Cristopher [place] Encounter for Feb-2 Lianne In Womens suprvsn of normal 1-201 Radha. Health PA, , third 8 700 PO Box [email or web address] weeks Medical 1522, gestation of [facility], [place], 120, , [place], [place], tel:[phone] , [place]. tel: [phone] Cristopher [place] Encounter for Feb-0 Lianne Referring In Womens suprvsn of normal 7-201 Radha. Provider: Health PA, , third 8 700 Radha PO Box [email or web address] weeks Medical [facility] L, 1522, gestation of [address], [place], 120, [place] [id number], [place] [address], [place], [place], tel:[phone] [place], , [place]. [id number]. tel: tel: [phone] Cristopher [place] Supervision of Feb-0 Lianne In Womens Ultrasound other high risk 7-201 Radha. Health PA, pregnancies, 8 700 PO Box third [email or web address] Medical 1522, weeks gestation [facility], of [place], 120, [id number], [place], [place], tel:[phone] , [place]. tel: [phone] Cristopher [place] Encounter for Prudencio-1 Lianne In Womens suprvsn of normal 9-201 Radha. Health PA, , third 8 700 PO Box [email or web address] weeks Medical 1522, gestation of [facility], [place], 120, [id number], [place], [place], tel: [phone] , [place]. tel: [phone] Cristopher [place] Encounter for Dec-0 Lianne In Womens suprvsn of normal 6-201 Radha. Health PA, , second 7 700 PO Box [email or web address] weeks Medical 1522, gestation of [facility], [place], 120, [id number], [place], tel:[phone] , [place]. tel: [phone] Cristopher [place] Encounter for Nov-0 Lianne Referring In Womens suprvsn of normal 1-201 Radha. Provider: Health PA, , second 7 700 Radha PO Box [email or web address] weeks Medical Lianne L, 1522, gestation of [address], [place], 120, [place] [id number], [place] [facility] 120, [place], tel:[phone] [place], , [place]. [id number]. tel: tel: [phone] Cristopher [place] Supervision of Nov-0 Lianne In Womens Ultrasound other high risk 1-201 Radha. Health PA, pregnancies, 7 700 PO Box second Medical 1522, [email or web address] weeks [facility], gestation of [place], 120, , [place], [place], tel:[phone] , [place]. tel: [phone] Cristopher [place] Encounter for Oct-1 Lianne Referring In Womens suprvsn of normal 8-201 Radha. Provider: Health PA, , second 7 700 Radha PO Box [email or web address] weeks Medical Lianne L, 1522, gestation of [address], [place], 120, [place] [id number], [place], [facility] 120, [place], tel:[phone] [place], , [place]. [id number]. tel: tel: [phone] [place] Supervision of Sep-1 Lianne Referring In Womens other high risk 8-201 Radha. Provider: Health PA, pregnancies, 7 700 Radha PO Box first Medical Lianne L, 1522, weeks gestation Center [address] [place] [address], of , [place], 120, Center [id number], [place], [facility] 120, [place], tel:[phone] [place], , [place]. [id number]. tel: tel:[phone] Cristopher [place] Supervision of Lianne Referring In Womens Ultrasound other high risk 8-201 Radha. Provider: Health PA, pregnancies, 7 700 Radha PO Box first [email or web address] Medical Lianne L, 1522, weeks gestation Center [address] [place] [address], of , [place], 120, Center [id number], [place] [facility] 120, [place], tel:[phone] [place], , [place]. [id number]. tel: tel:[phone] Cirstopher [place] Supervision of Lianne Referring In Womens other high risk 0-201 Radha. Provider: Health PA, pregnancies, 7 700 Radha PO Box first Medical Lianne L, 1522, trimesterPap Center [address] [place] [address], Smear Screening, [place], [id number] weeks 120, Center [id number], gestation of [place], [facility] 120, [place], tel:[phone] [place], , [place]. [id number]. tel: tel:[phone] Cristopher [place] Irregular Menses Norton Referring In Womens 1-201 Isidra. Provider: Health [place], 7 700 Radha PO Box Medical Lianne L, 1522, Center [address] [place], [place] [address]ta, [place], 120, Center [id number], [place], [facility] 120, [place], tel:[phone] [place], , [place]. [id number]. tel: tel:[phone] Cristopher [place] Irregular Lianne Referring In Womens Ultrasound MensesLess than 8 1-201 Radha. Provider: Yossi HINOJOSA, weeks gestation 7 700 Radha PO Box of Medical Lianne L, 1522, Center [facility] Dr Mili, [facility], 120, [place] , [place], [facility] 120, [place], tel:[phone] [place], , [place]. [id number]. tel: tel: [phone] Associates [place] Irregular Menses Johann-2 Lianne In Womens 4-201 Radha. Health MICAELA, 7 700 PO Box Medical 1522, [place] [address] [place], [facility] [place], 120, [id number], [place], tel:[phone] , [place]. tel: [phone] [facility] [place] Encntr for Johann-2 Lianne In Womens suprvsn of normal 0-201 Radha. Health MICAELA, , unsp, 7 700 PO Box unsp trimester Medical 1522, [place] [address] [place], [facility], 120, [id number], [place], [place], tel:[phone] , [place]. tel: [phone] [facility] [place] Encntr for Johann-1 Norton Referring In Womens suprvsn of normal 7-201 Isidra. Provider: Yossi HINOJOSA, , unsp, 7 700 Radha PO Box unsp trimester Medical Lianne L, 1522, Center [facility] Dr [place], [facility] [place], 120, [place] [id number], [place], [facility] 120, [place], tel:[phone] [place], , [place]. [id number]. tel: tel: [phone] Associates [place] Encounter for Johann-0 Norton Referring In Womens initial 5-201 Isidra. Provider: Health MICAELA, prescription of 6 700 Isidra PO Box injectable Medical Norton J, 1522, [facility] berta Garces for , [facility], test, result 120, [place] , negative [place], [facility] 120, [place], tel:[phone] [place], , [place]. [id number]. tel: [phone] [facility] In Silk 9-201 [facility], [address] Maxim, 1522, [place], [place], [place], [id number], , [place]. [place] tel: tel:[phone] Family History Family Member Diagnosis Age At [...] older Payers Payer name Insurance type Covered libertarian ID Authorization(s) [employer] [place] [employer] - Medicaid [place] [id number] [employer] - Medicaid [place] [id number] [employer] [place] [employer] - Medicaid [place] [id number] Social History Type Description Quantity Date Captured [...] BOOKED Future Order: Radiology Order Nuchal Translucency ([id number]) Ordered Future Order: Radiology Order Complete OB Ultrasound > 14 Ordered Weeks ([id number]) Future Order: Radiology Order Ultrasound OB Follow-up ([id number]) Ordered Date Type Problem Goal Intervention Status [...]
--- OUTSIDE RECORDS SUMMARY | 2017-09-30 08:35 | External Medical Summary | Continuity of Care Document ---
:1990 Author Organization [facility] [employer] [facility] Address [address] [place], [place] [id number] Phone Allergies, Adverse Reactions, Alerts Substance Reaction Severity Status No Known Drug Allergies Unknown Active Medications Medication Instructions Dosage Effective Dates Status Comments (start - stop) + DHA 28 take 1 by oral route Not Available - Active mg iron-800 every day mcg-200 mg oral pack ORAL - Active TABLET Problems Condition Effective Dates (start - stop) [...] For Visit Members Cristopher [place] Encounter for Prudencio-1 Lianne In Womens suprvsn of normal 9-201 Radha. Health MICAELA, , third 8 700 PO Box [email or web address] weeks Medical 1522, gestation of [facility] [place], 120, [id number], [facility] [place], tel:[phone] , [place]. tel: [phone] Cristopher [place] Prudencio-0 Lianne In Womens 2-201 Radha. Yossi HINOJOSA, 8 700 PO Box Medical 1522, [place] [address] [place], 120, [id number], [place], [facility], tel:[phone] , [place]. tel: [phone] Cristopher [place] Encounter for Dec-0 Lianne In Womens suprvsn of normal 6-201 Radha. Health MICAELA, , second 7 700 PO Box [email or web address] weeks Medical 1522, gestation of [facility] [place], 120, [id number], [facility] [place], tel:[phone] , [place]. tel: [phone] Cristopher [place] Encounter for Nov-0 Lianne Referring In Womens suprvsn of normal 1-201 Radha. Provider: Health MICAELA, , second 7 700 Radha PO Box [email or web address] weeks Medical Lianne L, 1522, gestation of [address], [facility] [place], 120, [place] [id number], [place] [facility] 120, [place], [place], tel:[phone] [place], , [place]. [id number]. tel: tel: [phone] Cristopher [place] Supervision of Nov-0 Lianne In Womens Ultrasound other high risk 1-201 Radha. Health MICAELA, pregnancies, 7 700 PO Box second Medical 1522, [email or web address] weeks [facility], gestation of [place], 120, [id number], [place], [facility], tel:[phone] , [place]. tel: [phone] Cristopher [place] Encounter for Oct- Lianne Referring In Womens suprvsn of normal 8-201 Radha. Provider: Health PA, , second 7 700 Radha PO Box [email or web address] weeks Medical Lianne L, 1522, gestation of [address], [place], 120, [place] [id number], [place], [facility] 120, [place], tel:[phone] [place], , [place]. [id number]. tel: tel:[phone] Cristopher [place] Supervision of Sep-1 Lianne Referring In Womens other high risk 8-201 Radha. Provider: Health PA, pregnancies, 7 700 Radha PO Box first [email or web address] Medical Lianne L, 1522, weeks gestation [address], of [place], 120, Center [id number], [place] [facility] 120, [place], tel:[phone] [place], , [place]. [id number]. tel: tel:[phone] Cristopher [place] Supervision of Sep-1 Lianne Referring In Womens Ultrasound other high risk 8-201 Radha. Provider: Health PA, pregnancies, 7 700 Radha PO Box first [email or web address] Medical Lianne L, 1522, weeks gestation [address], of [place], 120, [place] [id number], [place] [facility] 120, [place], tel:[phone] [place], , [place]. [id number]. tel: tel:[phone] [place] Supervision of Feb-3 Lianne Referring In Womens other high risk 0-201 Radha. Provider: Health PA, pregnancies, 7 700 Radha PO Box first Medical Lianne L, 1522, trimesterPap [address], Smear Screening, Dr, [facility], [email or web address] weeks 120, [place] [id number], gestation of [place], [facility] 120, [place], [place], tel:[phone] [place], , [place]. [id number]. tel: tel: [phone] Associates [place] Irregular Menses Johann-3 Norton Referring In Womens 1-201 Isidra. Provider: [facility] MICAELA, 7 700 Radha PO Box Medical Lianne L, 1522, Center [address], [facility], 120, [place] [id number], [facility] 120, [place], [place], tel:[phone] [place], , [place]. [id number]. tel: tel: [phone] Associates [place] Irregular Johann-3 Lianne Referring In Womens Ultrasound MensesLess than 8 1-201 Radha. Provider: Yossi HINOJOSA, weeks gestation 7 700 Radha PO Box of Medical Lianne L, 1522, Center [address], [facility], 120, [place] [id number], [facility] 120, [place], [place], tel:[phone] [place], , [place]. [id number]. tel: tel: [phone] [facility] [place] Irregular Menses Johann-2 Lianne In Womens 4-201 Radha. [facility] MICAELA, 7 700 PO Box Medical 1522, [place] [address] [place], [facility], 120, [id number], [place], [place], tel:[phone] , [place]. tel: [phone] [facility] [place] Encntr for Johann-2 Lianne In Womens suprvsn of normal 0-201 Radha. Health PA, , unsp, 7 700 PO Box unsp trimester Medical 1522, [address] [address] [place], [facility] [place], 120, [id number], [place], [place], tel:[phone] , [place]. tel: [phone] [facility] [place] Encntr for Johann-1 Norton Referring In Womens suprvsn of normal 7-201 Isidra. Provider: Health PA, , unsp, 7 700 Radha PO Box unsp trimester Medical Lianne Mary, 1522, Center [address] Dr [place], [facility], 120, Center [id number], [place], [facility] 120, [place], tel:[phone] [place], , [place]. [id number]. tel: tel:[phone] Associates [place] Encounter for Norton Referring In Womens initial 5-201 Isidra. Provider: Health PA, prescription of 6 700 Isidra PO Box injectable Medical Errol J, 1522, [facility] Center 700 [place], berta for , [facility], test, result 120, [place] , negative [place], [facility] 120, [place], tel:[phone] [place], , [place]. [id number]. tel: tel:[phone] [facility] [place] In Womens 9-201 Pollo. Health MICAELA, [address], 1522, [place], [place], [place], [place], [id number], , [place]. [place] tel: tel:[phone] Family History Family Member Diagnosis Age At [...] Authorization(s) [employer] - Medicaid [place] [id number] [employer] - Medicaid [place] [id number] Social History Type Description Quantity Date Captured Alcohol Use Details No Caffeine Use Details Unknown Tobacco Use Status Unknown Smoking Status Never smoker Vital Signs Date / Height Weight BMI Pulse Blood Temperature Respiratory Body Head BMI Time: Rate Pressure Rate Surface Circumference percentile Area 2 9:20 kg/m AM myron (2) Chief Complaint And Reason For Visit [...] BOOKED Future Order: Radiology Order Nuchal Translucency ([id number]) Ordered Future Order: Radiology Order Complete OB Ultrasound > 14 Ordered Weeks ([id number]) Date Type Problem Goal Intervention Status Start [...]
--- OUTSIDE RECORDS SUMMARY | 2017-09-30 08:35 | External Medical Summary | Continuity of Care Document ---
:1990 Author Organization [facility] Address [address] [place], [place] [id number] Phone Allergies, Adverse Reactions, Alerts Substance Reaction Severity Status No Known Drug Allergies Unknown Active Medications Medication Instructions Dosage Effective Dates (start - Status Comments stop) ORAL TABLET - Active Problems Condition Effective Dates (start - stop) Clinical Status Irregular Menses - Irregular Menses - Less than 8 weeks gestation of - Irregular Menses Encounter for initial prescription of injectable contracep Encounter for test, result - negative Encntr for suprvsn of normal , unsp, unsp trimester Encntr for suprvsn of normal , unsp, unsp trimester Anxiety Disorder Active Procedures Procedure Date OB US < 14 WKS, SINGLE FETUS Results Test Name Date and Time Measure Units Reference Range Abnormal Flag Comments Unknown Advance Directives Directive Yes / No Effective Date File Name Unknown Encounters Encounter Practice Location Reason(s) Diagnoses Date Provider Care Team Description For Visit Members [facility] [place] Irregular Menses Errol Referring In Womens Isidra. Provider: Yossi HINOJOSA, 7 700 [address] [place], [address], Center [address] Mili [facility], 120, [place] [id number], [place] [facility] 120, [place], tel: [phone] [place] [phone] , . [id number]. tel: tel: [phone] Cristopher [place] Irregular Lianne Referring In Women Ultrasound MensesLess than 8 1- Radha. Provider: Yossi HINOJOSA, weeks gestation 7 700 Radha [address] of [place] 1522, Center [facility] Dr Mili, [facility] [place], 120, Center [id number], [place], [facility] 120, [place], tel:[phone] [place], , [place]. [id number]. tel: tel:[phone] [facility] [place] Irregular Menses Johann-2 Lianne In Womens 4-201 Radha. Health PA, 7 700 PO Box Medical 1522, [place] [address] Mili, [facility] [place], 120, [id number], [place], tel:[phone] , [place]. tel: [phone] [facility] [place] Encntr for Johann-2 Lianne In Womens suprvsn of normal 0-201 Radha. Health MICAELA, , unsp, 7 700 PO Box unsp trimester Medical 1522, [place] Dr Mili, [facility], 120, , [place], [place], tel:[phone] , [place]. tel: [phone] [facility] Encntr for Johann-1 Norton Referring In Womens suprvsn of normal 7-201 Isidra. Provider: Health MICAELA, , unsp, 7 700 Radha PO Box unsp trimester Medical Lianne L, 1522, Center [address], [facility] [place], 120, [place] [id number], [place], [facility] 120, [place], tel:[phone] [place], , [place]. [id number]. tel: tel: [phone] [facility] [place] Encounter for Johann-0 Norton Referring In Womens initial 5-201 Isidra. Provider: Health PA, prescription of 6 700 Isidra PO Box injectable Medical Norton J, 1522, [facility] berta Garces for , [facility], test, result 120, Center [id number], negative [place], [facility] 120, [place], tel:[phone] [place], , [place]. [id number]. tel: tel: [phone] Associates [facility] Nicole In [employer] 9-201 [place] [employer] [place], [address], Mili Mili, [place], [place], [id number], , [place]. [place] tel: tel: [phone] Family History Family Member Diagnosis Age At Onset No family history of Colon Cancer No family history of Ovarian Cancer Mother Hypertension Maternal Grandmother Cardiovascular Disease Maternal Grandmother Diabetes mellitus Maternal Grandmother Hypertension Maternal Grandmother Stroke Paternal Grandmother Diabetes mellitus Mother Diabetes mellitus No family history of Breast Cancer No family history of Epilepsy Maternal Grandmother Renal disease No family history of Lung Disease Sister Thyroid Disorder No family history of Osteoporosis Immunizations Vaccine Date Status Comments Unknown Payers Payer name Insurance type Covered constitution party ID Authorization(s) [employer] [place] [employer] - Medicaid [place] [id number] Social History Type Description Quantity Date Captured Unknown Vital Signs Date / Height Weight BMI Pulse Blood Temperature Respiratory Body Head BMI Time: Rate Pressure Rate Surface Circumference percentile Area Unknown Chief Complaint And Reason For Visit Unknown Chief Complaint And Reason For Visit Reason For Referral Reason For Referral Unknown Plan Of Care Date Type Action Status Goal Lifestyle education regarding diet completed Goal Lifestyle education regarding diet completed Appointment Alisa Velazquez BOOKED Date Type Problem Goal Intervention Status Start Date Unknown. History Of Present Illness Encounter Date Complaint History Of Present Illness This patient has no known history of present illness Functional Status Encounter Date Functional Assessment Cognitive Assessment Unknown Medications Administered Medication Instructions Dosage Effective Dates (start - stop) Status Comments Drug Treatment Unknown Instructions Date Instruction Additional Information Giving encouragement to exercise Related to Body mass index 30.0- 30.9 Lifestyle education regarding diet Related to Body mass index 30.0-30.9 Giving encouragement to exercise Related to Body mass index 30.0- 30.9 Lifestyle education regarding diet Related to Body mass index 30.0-30.9
--- OUTSIDE RECORDS SUMMARY | 2017-09-30 08:35 | External Medical Summary | Continuity of Care Document ---
:1990 Author Organization [facility] Address [address] [place], [place] [id number] Phone Allergies, Adverse Reactions, Alerts Substance Reaction Severity Status No Known Drug Allergies Unknown Active Medications Medication Instructions Dosage Effective Dates (start - Status Comments stop) ORAL TABLET - Active Problems Condition Effective Dates (start - stop) Clinical Status Irregular Menses - Irregular Menses Irregular Menses - Less than 8 weeks gestation of - Encounter for initial [...] HINOJOSA, 7 700 Radha [address] William Abdalla L, 1522, Center [address] Mili, [facility], 120, [place] [id number], [place] [facility] 120, [place], [phone] [place], [phone] , . [id number]. tel: tel:[phone] Cristopher [place] Irregular Lianne Referring In Womens Ultrasound MensesLess than 8 1-201 Radha. Provider: Yossi HINOJOSA, weeks gestation 7 700 Radha PO [address] of [place], 1522, Center [address] Mili, [facility], 120, [place] [id number], [place], [facility] 120, [place], tel:[phone] [place], , [place]. [id number]. tel: tel:[phone] [facility] [place] Irregular Menses Johann-2 Lianne In Womens 4-201 Radha. Health PA, 7 700 PO Box Medical 1522, [place] Dr Mili, [facility], 120, [id number], [place], tel:[phone] , [place]. tel: [phone] Associates [place] Encntr for Johann-2 Lianne In Womens suprvsn of normal 0-201 Radha. Health PA, , unsp, 7 700 PO Box unsp trimester Medical 1522, [place] Dr Mili, [facility], 120, [id number], [place], tel:[phone] , [place]. tel: [phone] Cristopher [place] Encntr for Johann-1 Norton Referring In Womens suprvsn of normal 7-201 Isidra. Provider: Health PA, , unsp, 7 700 Radha PO Box unsp trimester Medical Lianne L, 1522, [place] [address], [facility], 120, [place] [id number], [place], [facility] 120, [place], tel:[phone] [place], , [place]. [id number]. tel: tel:[phone] Cristopher [place] Encounter for Johann-0 Norton Referring In Womens initial 5-201 Isidra. Provider: Health PA, prescription of 6 700 Isidra PO Box injectable Medical Norton J, 1522, [facility] Center [facility] berta Garces for , [facility], test, result 120, [place] , negative [place], [facility] 120, [place], tel:[phone] [place], , [place]. [id number]. tel: tel:[phone] Associates [facility] Aug-2 Nicole In Womens 9-201 Well [place], 1 [address] Surinder Pan, Desi2, Mili, [place], [place], [place], [id number], , [place]. [place] tel: [phone] Family History Family Member Diagnosis Age At [...] Unknown Payers Payer name Insurance type Covered green party ID Authorization(s) [employer] [place] [employer] - Medicaid [place] [id number] Social History Type Description Quantity Date Captured [...]
--- OUTSIDE RECORDS SUMMARY | 2017-09-30 08:35 | External Medical Summary | Continuity of Care Document ---
:1990 Author Organization [facility] Address [address] [place], [place] [id number] Phone Allergies, Adverse Reactions, Alerts Substance Reaction [...] Team Description For Visit Members [facility] [place] Supervision of Lianne Referring In Women other high risk 8-201 Radha. Provider: Health [place], pregnancies, 7 700 Radha PO Box first [email or web address] Medical Lianne [place], 1522, weeks gestation Center 700 [place], of [facility] [facility] [place], 120, [place] [id number], [place], [place] 120, [place], tel:+ [phone] [place], , [place]. [id number]. tel: tel:[phone] Cristopher [place] Supervision of Mar- Lianne Referring In Womens Ultrasound other high risk 8-201 Radha. Provider: Health PA, pregnancies, 7 700 Radha PO Box first [email or web address] Medical Lianne L, 1522, weeks gestation Center [address] [place] [address], [address] [facility] [place], 120, [place] [id number], [place], [facility] 120, [place], tel:+ [phone] [place], , [place]. [id number]. tel: tel:[phone] Cristopher [place] Mar- Lianne In Womens 4-201 Radha. Health PA, 7 700 PO Box Medical 1522, [place] Dr Mili, [facility], 120, [id number], [place], [place], tel:[phone] , [place]. tel: [phone] Cristopher [place] Supervision of Lianne Referring In Womens other high risk 0-201 Radha. Provider: Health PA, pregnancies, 7 700 Radha PO Box first Medical Lianne L, 1522, trimesterPap Center [address] [place] [address], Smear Screening, Dr [facility] William [place], [id number] weeks 120, [place] [id number], gestation of [place], [facility] 120, [place], tel:+ [phone] [place], , [place]. [id number]. tel: tel:[phone] Cristopher [place] Irregular Menses Norton Referring In Womens 1-201 Isidra. Provider: Health MICAELA, 7 700 Radha PO Box Medical Lianne L, 1522, Center [facility] Dr Mili, [facility] [place], 120, [place] [id number], [place], [facility] 120, [place], tel:[phone] [place], , [place]. [id number]. tel: tel:[phone] Cristopher [place] Irregular Johann-3 Lianne Referring In Womens Ultrasound MensesLess than 8 1-201 Radha. Provider: Yossi HINOJOSA, weeks gestation 7 700 Radha PO Box of Medical Lianne L, 1522, Center [facility] Dr Mili, [facility] [place], 120, [place] , [place], [facility] 120, [place], tel:+ [phone] [place], , [place]. [id number]. tel: tel:[phone] Associates [place] Irregular Menses Johann-2 Lianne In Womens 4-201 Radha. Health MICAELA, 7 700 PO Box Medical 1522, [place] Dr Mili, [facility] [place], 120, [id number], [place], [facility], tel:[phone] , [place]. tel: [phone] Associates [place] Encntr for Johann-2 Lianne In Womens suprvsn of normal 0-201 Radha. Health MICAELA, , unsp, 7 700 PO Box unsp trimester Medical 1522, [place] Dr Mili, [facility], 120, [id number], [place], [place], tel:[phone] , [place]. tel: [phone] [facility] [place] Encntr for Johann-1 Norton Referring In Womens suprvsn of normal 7-201 Isidra. Provider: Yossi HINOJOSA, , unsp, 7 700 Radha PO Box unsp trimester Medical Lianne L, 1522, Center [facility] Dr Mili, [facility] [place], 120, [place] , [place] [facility] 120, [place], tel:[phone] [place], , [place]. [id number]. tel: tel:[phone] Associates [place] Encounter for Johann-0 Norton Referring In Womens initial 5-201 Isidra. Provider: Health MICAELA, prescription of 6 700 Isidra PO Box injectable Medical Norton J, 1522, [facility] Center [facility] berta Garces for , [facility], test, result 120, [place] , negative [place], [facility] 120, [place], tel:[phone] [place], [address] , [place]. [id number]. tel: tel:[phone] [facility] In [facility] 9-201 [place]. [facility], 1 3232 [address] [place], 1522, [place], [place], [id number], , [place]. [place] tel: tel:[phone] Family History Family Member Diagnosis Age At [...] Authorization(s) [employer] [place] [employer] - Medicaid [place] [id number] Social History Type Description Quantity Date Captured [...] BOOKED Future Order: Radiology Order Nuchal Translucency (15090) Ordered Date Type Problem Goal Intervention Status [...]
--- OUTSIDE RECORDS SUMMARY | 2017-09-30 08:35 | External Medical Summary | Continuity of Care Document ---
:1990 Author Organization [facility] Address [address] [place], [place] [id number] Phone Allergies, Adverse Reactions, Alerts Substance Reaction Severity Status No Known Drug Allergies Unknown Active Medications Medication Instructions Dosage Effective Dates (start - Status Comments stop) ORAL TABLET - Active Problems Condition Effective Dates (start - stop) Clinical Status Irregular Menses - Encounter for suprvsn of normal - , second trimester 24 weeks gestation of - Irregular Menses Irregular [...] Reference Range Abnormal Flag Comments Panel Description: Glucose [Mass/volume] in Serum or Plasma --1 hour post 50 g glucose PO GLUCOSE, 134 mg/dL <140 N Test performed at [employer] GESTATIONAL SCREEN 10:52:00 DIAGNOSTICS [id number] (50G)-[address] [place] [address]Hmowfqiy: DARIUS RAMACHANDRAN DO,MPH Panel Description: HEMOGLOBIN + HEMATOCRIT HEMOGLOBIN 10:52:00 11.3 g/dL 11.7-15.5 L HEMATOCRIT 10:52:00 32.4 % 35.0-45.0 L REPORT COMMENT:FASTING :NOTest performed at [employer] [id number] [place] [id number]: DARIUS RAMACHANDRAN DO,MPH Advance Directives Directive Yes / No Effective Date File Name Unknown Encounters Encounter Practice Location Reason(s) Diagnoses Date Provider Care Team Description For Visit Members Cristopher [place] Encounter for Dec-0 Lianne In Womens suprvsn of normal 6-201 Radha. Health MICAELA, , second 7 700 PO Box [email or web address] weeks Medical 1522, gestation of [facility], [facility] [place], 120, , [place], [place], tel: [phone] , [place]. tel: [phone] Cristopher [place] Encounter for Nov-0 Lianne Referring In Womens suprvsn of normal 1-201 Radha. Provider: Health MICAELA, , second 7 700 Radha PO Box [email or web address] weeks Medical Lianne L, 1522, gestation of [address], [place] [facility], 120, [place] , [place] [facility] 120, [place], tel: [phone] [place], , . [id number]. tel: tel: [phone] Cristopher [place] Supervision of Nov-0 Lianne In Womens Ultrasound other high risk 1-201 Radha. Health PA, pregnancies, 7 700 PO Box second Medical 1522, [email or web address] weeks [facility], gestation of [place], 120, [id number], [place], [place], tel: [phone] , [place]. tel: [phone] Cristopher [place] Encounter for Apr- Lianne Referring In Womens suprvsn of normal 8-201 Radha. Provider: Health PA, , second 7 700 Radha PO Box [email or web address] weeks Medical Lianne L, 1522, gestation of [address], [place], 120, Center , [place], [facility] 120, [place], tel:[phone] [place], , [place]. [id number]. tel: tel:[phone] Cristopher [place] Supervision of Mar- Lianne Referring In Womens other high risk 8-201 Radha. Provider: Health PA, pregnancies, 7 700 Radha PO Box first [email or web address] Medical Lianne L, 1522, weeks gestation Center [address] [place] [address], of [place], 120, Center [id number], [place] [facility] 120, [place], tel:[phone] [place], , [place]. [id number]. tel: tel: [phone] Cristopher [place] Supervision of Mar- Lianne Referring In Womens Ultrasound other high risk 8-201 Radha. Provider: Health PA, pregnancies, 7 700 Radha PO Box first [email or web address] Medical Lianne L, 1522, weeks gestation Center [address] [place] [address], of [place], 120, Center [id number], [place] [facility] 120, [place], tel: [phone] [place], , [place]. [id number]. tel: tel:[phone] Cristopher [place] Supervision of 3 Lianne Referring In Womens other high risk 0-201 Radha. Provider: Health PA, pregnancies, 7 700 Radha PO Box first Medical Lianne L, 1522, trimesterPap Center [address] [place] [address], Smear Screening, [place], [id number] weeks 120, Center [id number], gestation of [place] [facility] 120, [place], tel:[phone] [place], , [place]. [id number]. tel: tel: [phone] Associates [place] Irregular Menses Johann-3 Norton Referring In Womens 1-201 Isidra. Provider: Yossi HINOJOSA, 7 700 Radha PO Box Medical Lianne L, 1522, Center [address] Dr Mili, [facility] [place], 120, [place] [id number], [facility] 120, [place], [place], tel:[phone] [place], , [place]. [id number]. tel: tel: [phone] Associates [place] Irregular Johann-3 Lianne Referring In Womens Ultrasound MensesLess than 8 1-201 Radha. Provider: Yossi HINOJOSA, weeks gestation 7 700 Radha PO Box of Medical Lianne L, 1522, Center [facility] Dr Mili, [facility], 120, [place] [id number], [facility] 120, [place], [place], tel:[phone] [place], , [place]. [id number]. tel: tel: [phone] Associates [place] Irregular Menses Johann-2 Lianne In Womens 4-201 Radha. Health MICAELA, 7 700 PO Box Medical 1522, [place] Dr Mili, [facility] [place], 120, [id number], [place], [place], tel:[phone] , [place]. tel: [phone] Associates [place] Encntr for Johann-2 Lianne In Womens suprvsn of normal 0-201 Radha. Health MICAELA, , unsp, 7 700 PO Box unsp trimester Medical 1522, [place] Dr Mili, [facility] [place], 120, [id number], [place], [place], tel:[phone] , [place]. tel: [phone] Associates [place] Encntr for Johann-1 Norton Referring In Womens suprvsn of normal 7-201 Isidra. Provider: Health MICAELA, , unsp, 7 700 Radha PO Box unsp trimester Medical Lianne L, 1522, Center [address] Dr Mili, [facility], 120, Center [id number], [place], [facility] 120, [place], tel:[phone] [place], , . [id number]. tel: tel:[phone] Associates [place] Encounter for Jan- Norton Referring In Womens initial 5-201 Isidra. Provider: Health MICAELA, prescription of 6 700 Isidra PO Box injectable Medical Errol Gan, 1522, [facility] 700 [place], for , [facility], test, result 120, [place] [id number], negative [place], [facility] 120, [place], tel:[phone] [place], , [place]. [id number]. tel: tel:[phone] Associates [facility] Nicole In Womens 9-201 [place]. Health MICAELA, 1 3232 [address] [place], 1522, Mili [place], [place], [place], [id number], , [place]. [place] tel: tel:[phone] Family History Family Member Diagnosis Age At [...] Authorization(s) [employer] - [place] [id number] [employer] - Medicaid [place] [id number] Social History Type Description Quantity Date Captured Alcohol Use Details No Caffeine Use Details Unknown Tobacco Use Status Unknown Smoking Status Never smoker Vital Signs Date / Height Weight BMI Pulse Blood Temperature Respiratory Body Head BMI Time: Rate Pressure Rate Surface Circumference percentile Area 176.70 28.5 110/63 -2017 lbs 2 mm[Hg] 9:56 kg/m AM eter (2) Chief Complaint And [...] BOOKED Future Order: Radiology Order Nuchal Translucency ([id number]) Ordered Future Order: Radiology Order Complete OB Ultrasound > 14 Ordered Weeks (08019) Date Type Problem Goal Intervention Status Start [...]
--- OUTSIDE RECORDS SUMMARY | 2017-09-30 08:35 | External Medical Summary | Continuity of Care Document ---
:1990 Author Organization [facility] Address [address] [place], [place] [address] Phone Allergies, Adverse Reactions, Alerts Substance Reaction [...] trimester Anxiety Disorder Active Procedures Procedure Date Ultrasnd preg uterus, flwup/repeat Results Test Name Date and Time Measure Units Reference Range Abnormal Flag Comments Unknown Advance Directives Directive Yes / No Effective Date File Name Unknown Encounters Encounter Practice Location Reason(s) Diagnoses Date Provider Care Team Description For Visit Members Cristopher [place] Encounter for Aug-2 Lianne In Womens suprvsn of normal 1-201 Radha. Health MICAELA, , third 8 700 [address] [email or web address] weeks Medical 1522, gestation of [facility] Dr [facility], 120, , [facility], tel: [phone] , [place]. tel: [phone] Cristopher [place] Encounter for Aug-0 Lianne Referring In Womens suprvsn of normal 7-201 Radha. Provider: Yossi HINOJOSA, , third 8 700 Radha [address] [email or web address] weeks Medical [facility] L, 1522, gestation of [address] [facility] [place], 120, [place] , [place] [address], [place], [place], tel: [phone] [place], [phone] , . [id number]. tel: tel: [phone] Cristopher [place] Supervision of b-0 Lianne In Womens Ultrasound other high risk 7-201 Radha. Health MICAELA, pregnancies, 8 700 PO Box third [email or web address] Medical 1522, weeks gestation [facility] [place], 120, [id number], [place], [facility], tel: [phone] , [place]. tel: [phone] Cristopher [place] Encounter for Prudencio-1 Lianne In Womens suprvsn of normal 9-201 Radha. Health PA, , third 8 700 PO Box [email or web address] weeks Medical 1522, gestation of [facility], [place], 120, [id number], [place], [place], tel:[phone] , [place]. tel: [phone] Cristopher [place] Encounter for Dec-0 Lianne In Womens suprvsn of normal 6-201 Radha. Health PA, , second 7 700 PO Box [email or web address] weeks Medical 1522, gestation of [facility], [place], 120, [id number], [place], [place], tel:[phone] , [place]. tel: [phone] Cristopher [place] Encounter for Nov-0 Lianne Referring In Womens suprvsn of normal 1-201 Radha. Provider: Health MICAELA, , second 7 700 Radha PO Box [email or web address] weeks Medical Lianne L, 1522, gestation of [address], [place], 120, [place] [id number], [place], [facility] 120, [place], tel:[phone] [place], , [place]. [id number]. tel: tel: [phone] Cristopher [place] Supervision of Nov-0 Lianne In Womens Ultrasound other high risk 1-201 Radha. Health PA, pregnancies, 7 700 PO Box second Medical 1522, [email or web address] weeks [facility], gestation of [place], 120, [id number], [place], [place], tel:[phone] , [place]. tel: [phone] Cristopher [place] Encounter for Oct-1 Lianne Referring In Womens suprvsn of normal 8-201 Radha. Provider: Health PA, , second 7 700 Radha PO Box [email or web address] weeks Medical Lianne L, 1522, gestation of [address], [place], 120, Center [id number], [place], [facility] 120, [place], tel:[phone] [place], , [place]. [id number]. tel: tel:[phone] Cristopher [place] Supervision of Lianne Referring In Womens other high risk 8-201 Radha. Provider: Health PA, pregnancies, 7 700 Radha PO Box first [email or web address] Medical Lianne L, 1522, weeks gestation Center [address] [place] [address], of [place], 120, Center [id number], [place] [facility] 120, [place], tel: [phone] [place], , [place]. [id number]. tel: tel:[phone] Cristopher [place] Supervision of Lianne Referring In Womens Ultrasound other high risk 8-201 Radha. Provider: Health PA, pregnancies, 7 700 Radha PO Box first [email or web address] Medical Lianne L, 1522, weeks gestation Center [address] [place] [address], of [place], 120, Center [id number], [place] [facility] 120, [place], tel:[phone] [place], , [place]. [id number]. tel: tel:[phone] Cristophre [place] Supervision of Lianne Referring In Womens other high risk 0-201 Radha. Provider: Health PA, pregnancies, 7 700 Radha PO Box first Medical Lianne L, 1522, trimesterPap Center [address] [place] [address], [facility], [place], [id number] weeks 120, Center , gestation of [place] [facility] 120, [place], tel: [phone] [place], , [place]. [id number]. tel: tel:[phone] Cristopher [place] Irregular Menses Norton Referring In Womens 1-201 Isidra. Provider: Health [place], 7 700 Radha PO Box Medical Lianne L, 1522, Center [address] [place] [address], [place], 120, Center [id number], [place] [facility] 120, [place], tel:[phone] [place], , [place]. [id number]. tel: tel: [phone] Associates [place] Irregular Johann-3 Lianne Referring In Womens Ultrasound MensesLess than 8 1-201 Radha. Provider: Yossi HINOJOSA, weeks gestation 7 700 Radha PO Box of Medical Lianne L, 1522, Center [facility] Dr Mili, [facility] [place], 120, [place] [id number], [place], [facility] 120, [place], [place], tel:[phone] [place], , [place]. [id number]. tel: tel: [phone] [facility] [place] Irregular Menses Johann-2 Lianne In Womens 4-201 Radha. Yossi HINOJOSA, 7 700 PO Box Medical 1522, [place] Dr Mili, [facility] [place], 120, [id number], [place], [place], tel:[phone] , [place]. tel: [phone] Cristopher [place] Encntr for Johann-2 Lianne In Womens suprvsn of normal 0-201 Radha. Yossi HINOJOSA, , unsp, 7 700 PO Box unsp trimester Medical 1522, [place] Dr Mili, [facility], 120, [id number], [place], [place], tel:[phone] , [place]. tel: [phone] Cristopher [place] Encntr for Johann-1 Norton Referring In Womens suprvsn of normal 7-201 Isidra. Provider: Yossi HINOJOSA, , unsp, 7 700 Radha PO Box unsp trimester Medical Lianne L, 1522, [place] [address] Dr Mili, [facility] [place], 120, [place] [id number], [place], [facility] 120, [place], [place], tel:[phone] [place], , [place]. [id number]. tel: tel: [phone] [facility] [place] Encounter for Johann-0 Norton Referring In Womens initial 5-201 Isidra. Provider: Yossi HINOJOSA, prescription of 6 700 Isidra PO Box injectable Medical Errol J, 1522, [facility] [place], r for , [facility], test, result 120, Center [id number], negative [place], [place] 120, [place], [place], tel:[phone] [place], [address] , [place]. [id number]. tel: tel:[phone] [facility] Nicole In [facility] 9-201 [facility], 1 [address] Maxim, 1522, [place], [place], [place], [place], [id number], , [place]. [place] tel: tel:[phone] Family History Family Member Diagnosis Age At [...] older Payers Payer name Insurance type Covered alliance party ID Authorization(s) [employer] [place] [employer] - Medicaid [place] [id number] [employer] [place] [employer] - Medicaid [place] [id number] [employer] [place] [employer] - Medicaid [place] [id number] Social History Type Description Quantity Date Captured [...] Alisa Velazquez BOOKED Future Order: Radiology Order Ultrasound OB Follow-up (92812) Ordered Future Order: Radiology Order Nuchal Translucency ([id number]) Ordered Future Order: Radiology Order Complete OB Ultrasound > 14 Ordered Weeks ([id number]) Date Type Problem Goal Intervention Status Start [...]
--- OUTSIDE RECORDS SUMMARY | 2017-09-30 08:35 | External Medical Summary | Continuity of Care Document ---
:1990 Author Organization [facility] Address [address] [place], [place] [address] Phone Allergies, Adverse Reactions, Alerts Substance Reaction Severity Status No Known Drug Allergies Unknown Active Medications Medication Instructions Dosage Effective Dates (start - Status Comments stop) ORAL TABLET - Active Problems Condition Effective Dates (start - stop) Clinical Status Irregular Menses - Encntr for suprvsn of normal , unsp, unsp trimester Irregular Menses Irregular Menses - Less than 8 weeks gestation of - Encounter for initial prescription of injectable contracep Encounter for test, result - negative Encntr for suprvsn of normal , unsp, unsp trimester Anxiety Disorder Active Procedures Procedure Date Unknown Results Test Name Date and Time Measure Units Reference Range Abnormal Flag Comments Panel Description: Choriogonadotropin.beta subunit [Units/volume] in Serum or Plasma HCG, TOTAL, QN 10:10:00 1422 mIU/mL H Reference RangeNon or premenopausal <5Postmenopausal <10 Values from different assay methods may vary.The use of this assay to monitor or to diagnose patients with cancer or any condition unrelatedto has not been cleared or approved bythe FDA or the subway train operator of the assay.Test performed at [facility] [id number] [place] [address]Cfrwuxyx: DARIUS RAMACHANDRAN DO,MPH Advance Directives Directive Yes / No Effective Date File Name Unknown Encounters Encounter Practice Location Reason(s) Diagnoses Date Provider Care Team Description For Visit Members [facility] [place] Irregular Menses Errol Referring In [facility] Isidra. Provider: Health MICEALA, 7 700 Radha PO Box Medical Lianne L, 1522, Center [facility] Dr Mili, [facility] [place], 120, [place] [id number], [place], [facility] , [place], [place], tel:[phone] [place], , [place]. [id number]. tel: tel: [phone] Associates [place] Irregular Johann-3 Lianne Referring In Womens Ultrasound MensesLess than 8 1-201 Radha. Provider: Health MICAELA, weeks gestation 7 700 Radha PO Box of Medical Lianne L, 1522, Center [address], [facility] [place], 120, [place] [id number], [place], [facility] 120, [place], tel:[phone] [place], , [place]. [id number]. tel: tel: [phone] [facility] [place] Irregular Menses Johann-2 Lianne In Womens 4-201 Radha. Health MICAELA, 7 700 PO Box Medical 1522, [place] Dr Mili, [facility] [place], 120, [id number], [place], [place], tel:[phone] , [place]. tel: [phone] [facility] [place] Encntr for Johann-2 Lianne In Womens suprvsn of normal 0-201 Radha. Health MICAELA, , unsp, 7 700 PO Box unsp trimester Medical 1522, [place] Dr Mili, [facility] [place], 120, [id number], [place], [place], tel:[phone] , [place]. tel: [phone] Cristopher [place] Encntr for Johann-1 Norton Referring In Womens suprvsn of normal 7-201 Isidra. Provider: Health MICAELA, , unsp, 7 700 Radha PO Box unsp trimester Medical Lianne L, 1522, Center [address], [facility] [place], 120, Center [id number], [place] [facility] 120, [place], tel:[phone] [place], , [place]. [id number]. tel: tel: [phone] Cristopher Tri[place] Encounter for Errol Referring In Womens initial 5-201 Isidra. Provider: Health PA, prescription of 6 700 Isidra PO Box injectable Medical Errol Gan, 1522, [facility] Center 700 [place], r for , [place] [facility] [place], test, result 120, Center [id number], negative [place], [place] 120, [place], tel:[phone] [place], [address] , [place]. [id number]. tel: tel:[phone] Associates [facility] Nicole In Womens 9-201 Pollo. Health MICAELA, 1 [address], 1522, [place], [place], [place], [id number], , [place]. [place] tel: tel:[phone] Family History Family Member Diagnosis Age At [...] Unknown Payers Payer name Insurance type Covered alliance party ID Authorization(s) [employer] [place] [employer] - Medicaid [place] [id number] Social History Type Description Quantity Date Captured [...]
--- OUTSIDE RECORDS SUMMARY | 2017-09-30 08:35 | External Medical Summary | Continuity of Care Document ---
:1990 Author Organization [facility] Address [address] [place], [place] [id number] Phone Allergies, Adverse Reactions, Alerts Substance Reaction [...] Team Description For Visit Members Cristopher Triana Early ob Irregular Menses Errol Referring In Womens (chief Isidra. Provider: Yossi HINOJOSA, complaint) 7 700 Radha PO Box [place], 1522, Center [address] Medical [place], 120, [place] [id number], [place] [facility] 120, [place], tel: [phone] [place] [phone] , . [id number]. tel: tel: [phone] Cristopher [place] Irregular Lianne Referring In Womens Ultrasound MensesLess than 8 - Radha. Provider: Yossi HINOJOSA, weeks gestation 7 700 Radha PO Box of Medical Lianne L, 1522, Center [facility] Dr Mili, [facility], 120, Center [id number], [place], [facility] 120, [place], tel:[phone] [place], , [place]. [id number]. tel: tel: [phone] [facility] [place] Irregular Menses Johann-2 Lianne In Womens 4-201 Radha. Health PA, 7 700 PO Box Medical 1522, [place] Dr Mili, [facility] [place], 120, [id number], [place], [place], tel:[phone] , [place]. tel: [phone] [facility] [place] Encntr for Johann-2 Lianne In Womens suprvsn of normal 0-201 Radha. Health MICAELA, , unsp, 7 700 PO Box unsp trimester Medical 1522, [place] Dr Mili, [facility], 120, , [place], [facility], tel:[phone] , [place]. tel: [phone] [facility] [place] Encntr for Johann-1 Norton Referring In Womens suprvsn of normal 7-201 Iisdra. Provider: Health MICAELA, , unsp, 7 700 Radha PO Box unsp trimester Medical Lianne L, 1522, Center [address], [facility], 120, [place] [id number], [place], [facility] 120, [place], tel:[phone] [place], , [place]. [id number]. tel: tel: [phone] [facility] [place] Encounter for Johann-0 Norton Referring In Womens initial 5-201 Isidra. Provider: Health PA, prescription of 6 700 Isidra PO Box injectable Medical Norton J, 1522, [facility] Center [facility] berta Garces for , [facility], test, result 120, Center [id number], negative [place], [facility] 120, [place], tel:[phone] [place], , [place]. [id number]. tel: tel:[phone] Associates [facility] [place] In Women 9-201 [facility] [place], 1 [address], [place], Mili Garces, [place], [place], [id number], , [place]. [place] tel: tel:[phone] Family History Family Member Diagnosis Age At [...] Authorization(s) [employer] - Medicaid MC [id number] Social History Type Description Quantity Date Captured Alcohol Use Details Unknown Caffeine Use Details Unknown Tobacco Use Status Unknown Smoking Status Never smoker Vital Signs Date / Height Weight BMI Pulse Blood Temperature Respiratory Body Head BMI Time: Rate Pressure Rate Surface Circumference percentile Area 171.30 63 105/71 2017 lbs /min mm[Hg] 11:25 AM Chief Complaint And Reason For Visit Most recent encounter only, dated '02/10/2017 11:30'. Early ob (chief complaint). Description: 26 yr wf gr 4 p 1 with hx of SABs presents today after early ob sono.HPI: Hx. of SABs. Here after early ob sono. Denies bleeding. Positive nausea. Taking PNV> Reason For Referral Reason For Referral Unknown Plan Of Care Date Type Action Status Goal Lifestyle education regarding diet completed Goal Lifestyle education regarding diet completed Appointment Alisa Velazquez BOOKED Date Type Problem Goal Intervention Status Start Date Unknown. History Of Present Illness Encounter Date Complaint History Of Present Illness Early ob 26 yr wf gr 4 p 1 with hx of SABs presents today after early ob sono.HPI: Hx. of SABs. Here after early ob sono. Denies bleeding. Positive nausea. Taking PNV> Functional Status Encounter Date Functional Assessment Cognitive [...]
--- OUTSIDE RECORDS SUMMARY | 2017-09-30 08:35 | External Medical Summary | Continuity of Care Document ---
:1990 Author Organization [facility] Address [address] [place], [place] [address] Phone Allergies, Adverse Reactions, Alerts Substance Reaction [...] trimester Anxiety Disorder Active Procedures Procedure Date Office/outpatient visit,est, low Results Test Name Date and Time Measure Units Reference Range Abnormal Flag Comments Panel Description: Choriogonadotropin.beta subunit [Units/volume] in Serum or Plasma HCG, TOTAL, QN 13:32:00 228 mIU/mL H Reference RangeNon or premenopausal <5Postmenopausal <10 Values from different assay methods may vary.The use of this assay to monitor or to diagnose patients with cancer or any condition unrelatedto has not been cleared or approved bythe FDA or the road worker of the assay.Test performed at [facility] [id number] [facility] [place] [address]Rqnzgcsy: DARIUS RAMACHANDRAN DO,MPH Advance Directives Directive Yes / No Effective Date File Name Unknown Encounters Encounter Practice Location Reason(s) Diagnoses Date Provider Care Team Description For Visit Members [facility] [place] Irregular Menses Errol Referring In [facility] -201 Isidra. Provider: Yossi HINOJOSA, 7 700 Radha PO Box Medical Lianne L, 1522, Center [facility] [address] Mili, [facility] Medical [place], 120, [place] [id number], [place], [facility] 120, [place], [place], tel:[phone] [place], , [place]. [id number]. tel: tel: [phone] [facility] [place] Irregular Johann-3 Lianne Referring In Womens Ultrasound MensesLess than 8 1-201 Radha. Provider: Yossi HINOJOSA, weeks gestation 7 700 Radha PO Box of Medical Lianne L, 1522, Center [facility] [address] Mili, [facility] Medical [place], 120, [place] [id number], [place], [facility] 120, [place], tel:[phone] [place], , [place]. [id number]. tel: tel: [phone] Cristopher [place] Irregular Menses Johann-2 Lianne In Womens 4-201 Radha. Yossi HINOJOSA, 7 700 PO Box Medical 1522, [place] Dr Mili, [facility] [place], 120, [id number], [place], [place], tel:[phone] , [place]. tel: [phone] Cristopher [place] Encntr for Johann-2 Lianne In Womens suprvsn of normal 0-201 Radha. Yossi HINOJOSA, , unsp, 7 700 PO Box unsp trimester Medical 1522, [place] Dr Mili, [facility] [place], 120, [id number], [place], [place], tel: [phone] , [place]. tel: [phone] Office/outpa [facility] [place] Early ob Encntr for Johann-1 Norton Referring tient In Womens (chief suprvsn of normal 7-201 Isidra. Provider: visit,est, Health MICAELA, complaint) , unsp, 7 700 Radha low PO Box unsp trimester Medical Lianne L, 1522, Center [address] Dr Mili, [facility] Medical [place], 120, [place] [id number], [place], [facility] 120, [place], tel:[phone] [place], , [place]. [id number]. tel: tel:[phone] [facility] [place] Encounter for Norton Referring In Womens initial 5-201 Isidra. Provider: Health PA, prescription of 6 700 Isidra PO Box injectable Medical Errol Gan, 1522, [facility] Center 700 [place], r for , [facility] [place], test, result 120, [place] [id number], negative [place], [place] 120, [place], tel: [phone] [place], , [place]. [id number]. tel: tel:[phone] Associates [facility] Nicole In Womens 9-201 Pollo. Health MICAELA, 1 [address] [place], 1522, [place], [place], [place], [place], [id number], , [place]. [place] tel: tel:[phone] Family History Family Member Diagnosis Age At [...] Authorization(s) [employer] - Medicaid [place] [id number] Social History Type Description Quantity Date Captured Alcohol Use Details No Caffeine Use Details Unknown 2 cups per day Tobacco Use Status Never smoked tobacco Smoking Status Never smoker Vital Signs Date / Height Weight BMI Pulse Blood Temperature Respiratory Body Head BMI Time: Rate Pressure Rate Surface Circumference percentile Area 170.90 85 116/2017 lbs /min mm[Hg] 1:10 PM Chief Complaint And Reason For Visit Unknown [...] Of Present Illness Early ob 26 yr WF Gr 4 P 1 presents today for early PG with questions.HPI: Positive PG tests x 3 at home. Here today for confirmation. LMP 12/29/16, 4.1GA, EDC 10/05/17. Not taking PNV at this time. Hx. of SAB's. Is worried about miscarriage. Denies s/b. +breast tenderness, +fatigue. Functional Status Encounter Date Functional Assessment Cognitive [...]
--- OUTSIDE RECORDS SUMMARY | 2017-09-30 08:35 | External Medical Summary | Continuity of Care Document ---
:1990 Author Organization [facility] Address [address] [place], [place] [id number] Phone Allergies, Adverse Reactions, Alerts Substance Reaction Severity Status No Known Drug Allergies Unknown Active Medications Medication Instructions Dosage Effective Dates Status Comments (start - stop) ORAL - Active TABLET azithromycin 500 mg take 1 tablet by 500 MG - No Longer tablet oral route every Active day for 3 days Problems Condition Effective Dates (start - stop) Clinical Status Irregular Menses - Encounter for suprvsn of normal - , second trimester 17 weeks gestation of - Irregular Menses Irregular [...] second trimester 19 weeks gestation of - Encntr for suprvsn [...] , second 7 700 Radha [address] [email or web address] weeks Medical Lianne L, 1522, gestation of Center [address] [place] [address], Corwin [place], 120, [place] , [place] [facility] 120, [place], tel:[phone] [place], , [place]. [id number]. tel: tel:[phone] Cristopher [place] Supervision of Nov-0 Lianne In Womens Ultrasound other high risk 1-201 Radha. Health MICAELA, pregnancies, 7 700 PO Box second Medical 1522, [email or web address] weeks [facility], gestation of [place]win [place], 120, [id number] Amaro, [place], tel:[phone] , [place]. tel: [phone] Cristopher [place] Encounter for Oct-1 Lianne Referring In Womens suprvsn of normal 8-201 Radha. Provider: Yossi HINOJOSA, , second 7 700 Radha PO Box [email or web address] weeks Medical Lianne L, 1522, gestation of Center [address] [place] [address], [place], 120, [place] [id number], [place] [facility] 120, [place], tel:[phone] [place], , [place]. [id number]. tel: tel:[phone] Cristopher [place] Supervision of Sep-1 Lianne Referring In Womens other high risk 8-201 Radha. Provider: Health MICAELA, pregnancies, 7 700 Radha PO Box first [email or web address] Medical Lianne L, 1522, weeks gestation Center [address] [place] [address], of [place] Sierra, 120, Center [id number], [place] [facility] 120, [place], tel:[phone] [place], , [place]. [id number]. tel: tel:[phone] Cristopher [place] Supervision of Lianne Referring In Womens Ultrasound other high risk 8-201 Radha. Provider: Health MICAELA, pregnancies, 7 700 Radha PO Box first [email or web address] Medical Lianne L, 1522, weeks gestation Center [address] [place] [address], of , Corwin [place], 120, Center [id number], [place], [facility] 120, [place], tel: [phone] [place], , [place]. [id number]. tel: tel:[phone] Cristopher [place] Supervision of Lianne Referring In Womens other high risk 0-201 Radha. Provider: Health MICAELA, pregnancies, 7 700 Radha PO Box first Medical Lianne L, 1522, trimesterPap Center [address] [place] [address], Smear Screening, , [facility] [place] OLIVO, [email or web address] weeks 120, Center [id number], gestation of [place], [facility] 120, [place], tel:[phone] [place], , [place]. [id number]. tel: tel:[phone] Cristopher [place] Irregular Menses Norton Referring In Womens -201 Isidra. Provider: Yossi HINOJOSA, 7 700 Radha PO Box Medical Lianne L, 1522, Center [facility] Dr Mili, [facility] [place], 120, Center [id number], [place], [facility] 120, [place], tel:[phone] [place], , [place]. [id number]. tel: tel:[phone] Cristopher [place] Irregular Lianne Referring In Womens Ultrasound MensesLess than 8 - Radha. Provider: Yossi HINOJOSA, weeks gestation 7 700 Radha PO Box of [place] Abdalla L, 1522, Center [facility] Dr Mili, [facility] [place], 120, Center [id number], [place], [facility] 120, [place], tel:[phone] [place], , [place]. [id number]. tel: tel:[phone] Cristopher [place] Irregular Menses Johann-2 Lianne In Womens 4-201 Radha. Health PA, 7 700 PO Box Medical 1522, [address] Dr Mili, [facility] [place], 120, [id number], [place], [place], tel: [phone] , [place]. tel: [phone] Associates [place] Encntr for Johann-2 Lianne In Womens suprvsn of normal 0-201 Radha. Health PA, , unsp, 7 700 PO Box unsp trimester Medical 1522, [address] Dr Mili, [facility], 120, [id number], [place], [place], tel: [phone] , [place]. tel: [phone] Associates [place] Encntr for Johann-1 Norton Referring In Womens suprvsn of normal 7-201 Isidra. Provider: Health PA, , unsp, 7 700 Radha PO Box unsp trimester Medical Lianne L, 1522, [place] [address] Dr Mili, [facility], 120, Randle , [place], [facility] 120, [place], tel: [phone] [place], , [place]. [id number]. tel: tel: [phone] Associates [place] Encounter for Johann-0 Norton Referring In Womens initial 5-201 Isidra. Provider: Health PA, prescription of 6 700 Isidra PO Box injectable Medical Errol J, 1522, [facility] Center [facility] M[place], berta for , [facility], test, result 120, [place] , negative [place] [facility] 120, [place], tel: [phone] [place], , [place]. [id number]. tel: tel: [phone] Associates [facility] Feb-2 [place] In Womens 9-201 Pollo. Health PA, [address] Maxim, 1522, Mili, [place], [place], [place], [id number] , , [place]. [place] tel: tel: [phone] Family History Family Member Diagnosis Age At [...] Authorization(s) [employer] - Medicaid [place] [id number] [employer] - Medicaid [place] [id number] Social History Type Description Quantity Date Captured Alcohol Use Details No Caffeine Use Details Unknown 2 cups per day Tobacco Use Status Never smoked tobacco Smoking Status Never smoker Vital Signs Date / Height Weight BMI Pulse Blood Temperature Respiratory Body Head BMI Time: Rate Pressure Rate Surface Circumference percentile Area 169.90 27.4 114/ lbs 2 mm[Hg] 1:19 kg/m PM eter (2) Chief Complaint And Reason For Visit Unknown Chief Complaint And Reason For Visit Reason For Referral Reason For Referral Unknown Plan Of Care Date Type Action Status Goal Lifestyle education regarding completed diet Goal Lifestyle education regarding completed diet Appointment Alisa Velazquez BOOKED Future Order: Radiology Order Nuchal Translucency ([id number]) Ordered Future Order: Radiology Order Complete OB Ultrasound > 14 Ordered Weeks ([id number]) Date Type Problem Goal Intervention Status Start [...]
--- OUTSIDE RECORDS SUMMARY | 2017-09-30 08:36 | External Medical Summary | Continuity of Care Document ---
:1990 Author Organization [facility] Address [address] [place], [place] [address] Phone Allergies, Adverse Reactions, Alerts Substance Reaction Severity Status No Known Drug Allergies Unknown Active Medications Medication Instructions Dosage Effective Dates (start - Status Comments stop) ORAL TABLET - Active Problems Condition Effective Dates (start - stop) Clinical Status Irregular Menses - Supervision of other high risk - pregnancies, first trimester 13 weeks gestation of - Irregular Menses Irregular [...] Procedure Date OB Visit No Charge - [employer]OOK[employer]KER Results Test Name Date and Time Measure Units Reference Range Abnormal Flag Comments Unknown Advance Directives Directive Yes / No Effective Date File Name Unknown Encounters Encounter Practice Location Reason(s) Diagnoses Date Provider Care Team Description For Visit Members Cristopher [place] Supervision of Lianne Referring In [facility] other high risk 8-201 Radha. Provider: Health PA, pregnancies, 7 700 Radha PO Box first [email or web address] Medical Lianne Mary, 1522, weeks gestation Center [address], of Dr, [facility] Medical [place], 120, Center [id number], [place], [facility] 120, [place], tel:[phone] [place], , [place]. [id number]. tel: tel:[phone] Cristopher [place] Supervision of Lianne Referring In Womens Ultrasound other high risk 8-201 Radha. Provider: Health [place], pregnancies, 7 700 Radha PO Box first [email or web address] Medical Lianne L, 1522, weeks gestation Center [address] [place], [place] [address]ta, of , [facility] [place], 120, Center [id number], [place], [facility] 120, [place], tel:[phone] [place], , [place]. [id number]. tel: tel:[phone] Cristopher [place] Supervision of Lianne Referring In Womens other high risk 0-201 Radha. Provider: [facility], pregnancies, 7 700 Radha PO Box first Medical Lianne L, 1522, trimesterPap Center [address] [place] [address], Smear Screening, , [facility] [place], [id number] weeks 120, [place] [id number], gestation of [facility] 120, [place], tel:[phone] [place], , [place]. [id number]. tel: tel:[phone] Cristopher [place] Irregular Menses Norton Referring In Womens -201 Isidra. Provider: [facility], 7 700 Radha PO Box Medical Lianne L, 1522, Center [facility] [address] M[place], [facility] [place], 120, Center [id number], [place], [facility] 120, [place], tel:[phone] [place], , [place]. [id number]. tel: tel:[phone] Cristopher [place] Irregular Lianne Referring In Womens Ultrasound MensesLess than 8 -201 Radha. Provider: Yossi HINOJOSA, weeks gestation 7 700 Radha PO Box of [place], 1522, Center [facility] [address] M[place], [facility], 120, Center [id number], [place], [facility] 120, [place], tel:[phone] [place], , [place]. [id number]. tel: tel:[phone] Cristopher [place] Irregular Menses Johann-2 Lianne In Womens 4-201 Radha. Health PA, 7 700 PO Box Medical 1522, [place] Dr [place], [facility] [place], 120, [id number], [place], tel:[phone] , [place]. tel: [phone] Cristopher [place] Encntr for Johann-2 Lianne In Womens suprvsn of normal 0-201 Radha. Health PA, , unsp, 7 700 PO Box unsp trimester Medical 1522, [place] Dr Mili, [facility], 120, [id number], [place], [place], tel:[phone] , [place]. tel: [phone] Cristopher [place] Encntr for Johann-1 Norton Referring In Womens suprvsn of normal 7-201 Isidra. Provider: Health PA, , unsp, 7 700 Radha PO Box unsp trimester Medical Lianne L, 1522, Center [facility] [address] [place], [facility], 120, [place] , [place] [facility] 120, [place], tel:[phone] [place], , [place]. [id number]. tel: tel: [phone] Cristopher [place] Encounter for Johann-0 Norton Referring In Womens initial 5-201 Isidra. Provider: Health PA, prescription of 6 700 Isidra PO Box injectable Medical Norton J, 1522, [facility] 700 [place], berta for , [facility], test, result 120, [place] , negative [place] [facility] 120, [place], tel:[phone] [place], , [place]. [id number]. tel: tel:[phone] Associates [facility] East Feb- [place] In Womens 9-201 Pollo. Health PA, 1 [address] Maxim Desi2, M[place] Garces, [place], [place], [id number], , [place]. [place] tel: [phone] Family History Family Member Diagnosis Age At [...] Unknown Payers Payer name Insurance type Covered libertarian ID Authorization(s) [employer] - Medicaid [place] [id number] Social History Type Description Quantity Date Captured Alcohol Use Details No Caffeine Use Details Unknown 2 cups per day Tobacco Use Status Never smoked tobacco Smoking Status Never smoker Vital Signs Date / Height Weight BMI Pulse Blood Temperature Respiratory Body Head BMI Time: Rate Pressure Rate Surface Circumference percentile Area 165.80 26.7 lbs 6 mm[Hg] 10:18 kg/m AM eter (2) Chief Complaint And Reason For Visit Unknown Chief Complaint And Reason For Visit Reason For Referral Reason For Referral Unknown Plan Of Care Date Type Action Status Goal Lifestyle education regarding completed diet Goal Lifestyle education regarding completed diet Appointment Alisa Velazquez BOOKED Future Order: Radiology Order Nuchal Translucency ([id number]) Ordered Date Type Problem Goal Intervention Status [...]
--- OUTSIDE RECORDS SUMMARY | 2017-09-30 08:36 | External Medical Summary | Continuity of Care Document ---
:1990 Author Organization [facility] Address [address] [place], [place] [phone] Phone Allergies, Adverse Reactions, Alerts Substance Reaction [...] Anxiety Disorder Active Procedures Procedure Date Office/outpatient visit,nikc [facility] Results Test Name Date and Time Measure Units Reference Range Abnormal Flag Comments Unknown Advance Directives Directive Yes / No Effective Date File Name Unknown Encounters Encounter Practice Location Reason(s) Diagnoses Date Provider Care Team Description For Visit Members Office/outpa [facility] [place] Early ob Irregular Menses Errol Referring tient In Womens (chief Isidra. Provider: visit,est, Health PA, complaint) 7 700 Radha low PO Box [place], 1522, Center [address] [place], [facility] Medical [place], 120, [place] [id number], [place] [facility] 120, [place], tel:[phone] [place], [address] , [place]. [id number]. tel: tel: [phone] Cristopher [place] Irregular Lianne Referring In Womens Ultrasound MensesLess than 8 - Radha. Provider: Health PA, weeks gestation 7 700 Radha PO Box of Medical Lianne L, 1522, Center [facility] Dr Mili, [facility] [place], 120, [place] [id number], [place], [facility] 120, [place], tel:[phone] [place], , [place]. [id number]. tel: tel: [phone] Associates [place] Irregular Menses Johann-2 Lianne In Womens 4-201 Radha. Health MICAELA, 7 700 PO Box Medical 1522, [address] Dr Mili, [facility] [place], 120, [id number], [place], tel:[phone] , [place]. tel: [phone] Associates [place] Encntr for Johann-2 Lianne In Womens suprvsn of normal 0-201 Radha. Health MICAELA, , unsp, 7 700 PO Box unsp trimester Medical 1522, [address] Dr Mili, [facility], 120, , [place], [place], tel:[phone] , [place]. tel: [phone] Associates [place] Encntr for Johann-1 Norton Referring In Womens suprvsn of normal 7-201 Isidra. Provider: Yossi HINOJOSA, , unsp, 7 700 Radha PO Box unsp trimester Medical Lianne L, 1522, Center [facility] Dr Mili, [facility] [place], 120, [place] [id number], [place], [facility] 120, [place], tel:[phone] [place], , [place]. [id number]. tel: tel: [phone] Associates [place] Encounter for Johann-0 Norton Referring In Womens initial 5-201 Isidra. Provider: Health MICAELA, prescription of 6 700 Isidra PO Box injectable Medical Norton J, 1522, contracepEncounte Center [facility] berta Garces for , [facility], test, result 120, [place] [id number], negative [place], [facility] 120, [place], tel:[phone] [place], , [place]. [id number]. tel: tel:[phone] Associates [facility] Nicole In Women 9-201 [place]. [facility], 1 32[address] E [address] Surinder Pan, 1522, [place], [place], [id number], , [place]. [place] tel: [phone] Family History Family Member Diagnosis Age At [...] Authorization(s) [employer] - Medicaid [place] [id number] Social History Type Description Quantity Date Captured [...]
--- OUTSIDE RECORDS SUMMARY | 2017-09-30 08:36 | External Medical Summary | Continuity of Care Document ---
:1990 Author Organization [facility] In [facility] Address [address] [place], [place] [address] Phone Allergies, Adverse Reactions, Alerts Substance Reaction [...] trimester Anxiety Disorder Active Procedures Procedure Date Ultrasound, Nuchal Translucency Measurement Results Test Name Date and Time Measure Units Reference Range Abnormal Flag Comments Unknown Advance Directives Directive Yes / No Effective Date File Name Unknown Encounters Encounter Practice Location Reason(s) Diagnoses Date Provider Care Team Description For Visit Members Cristopher [place] Supervision of Lianne Referring In Women other high risk 8-201 Radha. Provider: [facility], pregnancies, 7 700 Radha PO Box first [email or web address] Medical Lianne Mary, 1522, weeks gestation Center [address] [place], of Dr, [facility] Medical [place], 120, Center [id number], [place], [facility] 120, [place], tel:[phone] [place], , [place]. [id number]. tel: tel:[phone] Cristopher [place] Supervision of Lianne Referring In Womens Ultrasound other high risk 8-201 Radha. Provider: [facility], pregnancies, 7 700 Radha PO Box first [email or web address] Medical Lianne L, 1522, weeks gestation Center [facility], of , [facility] [place], 120, Center [id number], [place], [facility] 120, [place], tel:[phone] [place], , [place]. [id number]. tel: tel:[phone] Cristopher [place] Supervision of Lianne Referring In Womens other high risk 0-201 Radha. Provider: [facility], pregnancies, 7 700 Radha PO Box first Medical Lianne L, 1522, trimesterPap Center [address] [place] [address], Smear Screening, , [facility], [id number] weeks 120, [place] [id number], gestation of [facility] 120, [place], tel:[phone] [place], , [place]. [id number]. tel: tel:[phone] Cristopher [place] Irregular Menses Norton Referring In Womens 1-201 Isidra. Provider: Health MICAELA, 7 700 Radha PO Box Medical Lianne L, 1522, Center [facility] Dr Mili, [facility] [place], 120, [place] [id number], [place], [facility] 120, [place], tel:[phone] [place], , [place]. [id number]. tel: tel:[phone] Cristopher [place] Irregular Lianne Referring In Womens Ultrasound MensesLess than 8 -201 Radha. Provider: Health MICAELA, weeks gestation 7 700 Radha PO Box of [place], 1522, Center [facility] Dr Mili, [facility], 120, Center [id number], [place] [facility] 120, [place], tel:[phone] [place], , [place]. [id number]. tel: tel:[phone] Cristopher [place] Irregular Menses Johann-2 Lianne In Womens 4-201 Radha. Health PA, 7 700 PO Box Medical 1522, [place] Dr Mili, [facility] [place], 120, [id number], [place], [place], tel:[phone] , [place]. tel: [phone] Cristopher [place] Encntr for Johann-2 Lianne In Womens suprvsn of normal 0-201 Radha. Health PA, , unsp, 7 700 PO Box unsp trimester Medical 1522, [place] Dr Mili, [facility], 120, [id number], [place], [place], tel:[phone] , [place]. tel: [phone] Cristopher [place] Encntr for Johann-1 Norton Referring In Womens suprvsn of normal 7-201 Isidra. Provider: Health PA, , unsp, 7 700 Radha PO Box unsp trimester Medical Lianne L, 1522, Center [facility] Dr Mili, [facility] [place], 120, [place] , [place] [facility] 120, [place], tel:[phone] [place], , [place]. [id number]. tel: tel:[phone] Cristopher [place] Encounter for Johann-0 Norton Referring In Womens initial 5-201 Isidra. Provider: Health PA, prescription of 6 700 Isidra PO Box injectable Medical Norton J, 1522, [facility] 700 [place], berta for , [facility], test, result 120, [place] [id number], negative [place] [facility] 120, [place], tel:[phone] [place], , [place]. [id number]. tel: tel:[phone] Associates [facility] East Aug-2 Nicole In Womens 9-201 Pollo. Health PA, 1 [address] [place], Desi2, [place] Garces, [place], [place], [id number], , [place]. [place] tel: tel:[phone] Family History Family Member Diagnosis Age At [...] Authorization(s) [employer] - Medicaid [place] [id number] Social History Type Description Quantity Date Captured [...] BOOKED Future Order: Radiology Order Nuchal Translucency ([id number]) Ordered Date Type Problem Goal Intervention Status [...]
[2017-09-30] MEDS: LR 1,000 ML IV PRN ×3 (08:45→12:33)
[2017-09-30] MEDS ORDERED: LIDOCAINE 1% (10mg/ml) 2mL INJ PF SDV ID PRN (09:01)
[2017-09-30] MEDS ORDERED: ACETAMINOPHEN 500 MG TABLET PO PRN ×2 (09:01→17:04)
[2017-09-30] MEDS ORDERED: CARBOPROST 250 MCG/ML INJECTION IM PRN (09:01)
[2017-09-30] MEDS ORDERED: CALCIUM CARBONATE Chewable 500mg TABLET PO PRN ×2 (09:01→17:04)
[2017-09-30] MEDS ORDERED: METHYLERGONOVINE 0.2 MG/ML INJECTION IM PRN (09:01)
[2017-09-30] MEDS ORDERED: MAG-AL + SIM ORAL LIQUID 30ml PO PRN ×2 (09:01→17:04)
[2017-09-30 09:03] VITALS: BMI 30.4
--- NOTE | 2017-09-30 10:10 | Anesthesia Preoperative Report ---
Anesthesia Epidural/Spinal Rec - Date and Time Date: 09/30/17 Preoperative Diagnosis: SROM at 0800 Procedure: Labor Epidural Plan: Epidural - Vital Signs Vital Signs: Temperature 97.1 F 09/30/17 08:52 Pulse Rate 95 09/30/17 08:52 Respiratory Rate 165 H 09/30/17 08:52 Blood Pressure 109/72 09/30/17 08:52 Pulse Oximetry 98 09/30/17 08:52 NPO since: midnight /Para: P:1 Height and Weight: 5' 6" 188 lbs. - Medictaions & Allergies Inpatient Medications: Current Medications Acetaminophen (Tylenol) 500 - 1,000 mg PO Q4H PRN PRN Reason: Pain Al Hydroxide/Mg Hydroxide (Maalox Plus) 30 ml PO Q3H PRN PRN Reason: Indigestion Calcium Carbonate (Tums) 500 - 1,000 mg PO Q2H PRN PRN Reason: Indigestion Carboprost Tromethamine (Hemabate) 250 mcg IM O PRN PRN Reason: .Downtime Lactated Ringer's (Lactated Ringers) 1,000 mls @ 999 mls/hr IV .Q1H1M PRN Lidocaine HCl (Xylocaine-Mpf 1% Vial) 0.2 mg ID O PRN PRN Reason: IV Start Methylergonovine Maleate (Methergine) 0.2 mg IM O PRN Misoprostol (Cytotec) 800 mcg SC ONCE PRN Allergies/Adverse Reactions: Allergies Allergy/AdvReac Type Severity Reaction Status Date / Time lactose Allergy Intermediate NAUSEA Verified 02/16/17 15:03 - Home Medications Home Medications: Home Medications Medication Instructions Recorded Confirmed Type Vits #93/Iron Fum/FA 1 each PO DAILY 02/16/17 02/16/17 History [ Formula Tablet] - Medical History Respiratory: Reports: Asthma Other History: Reports: Now, Other (second hand smoke) - Surgical History Reproductive Surgery/Treatment: Reports: Other (R ovary/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) DENIES: Section Anesthesia Reactions: None Hx Family Anesthesia Reaction: No History of Motion Sickness: No - Social History Smoking Status: Never smoker Substance Use Type: does not use - Pertinent Findings Lab Data: CBC and BMP 09/30/17 09:14 - Physical Exam Respiratory Exam: lungs clear, bilateral breath sounds equal Cardiovascular Exam: regular rate and rhythm - Airway Assessment Mallampati Score: I TMD: 3 Fingerbreadths Neck Extension: fair Overall Assessment: no airway concerns - ASA ASA Score: 2 - Discussion Discussion: Discussed risks/options/alternatives of anesthesia and questions answered. Patient consents. Nursing pain assessment noted. Anesthesia Discussion: family member Attestation Statement: Prior to the delivery of any anesthetic medication, I examined the patient, developed the plan, obtained the patient's consent and discussed the risk and benefits of the procedure with the patient/guardian.
[2017-09-30] MEDS ORDERED: ONDANSETRON 4 MG/2 ML INJECTION IVP PRN (14:58)
[2017-09-30] MEDS ORDERED: OXYTOCIN DRIP 30 UNIT/500 ML ML IV PRN (17:04)
[2017-09-30] MEDS ORDERED: Oxycodone/Acetaminophen 5/325 1 TAB PO PRN (17:04)
[2017-09-30] MEDS ORDERED: DiphenhydrAMINE 25 MG CAPSULE PO PRN (17:04)
[2017-09-30] MEDS ORDERED: HYDROCORTISONE 2.5% CREAM 30gm RECTALLY PRN (17:04)
--- NOTE | 2017-09-30 17:08 | OB/GYN Procedure Note ---
Delivery date: 09/30/17 Induction method: none Delivery monitor: external FHT, internal uterine Route of delivery: Laceration description: None Estimated blood loss (mL): 200 Anesthesia type: Epidural Disposition: floor - Baby 1 Infant gender: Female presentation: Vertex position: Vertex-by exam Placenta delivery description: Spontaneous cord vessel description: 3 Vessels at 1 minute: 7 at 5 minutes: 9
[2017-09-30] MEDS ORDERED: OXYTOCIN DRIP 30 UNIT/500 ML ML IV SCH (17:15)
[2017-09-30] MEDS: IBUPROFEN 800 MG TABLET PO PRN (20:03)
[2017-09-30] MEDS ORDERED: SUFentanil 50 MCG, ROPIVACAINE 0.2% 2MG/ML INJ 40 MG in NS 100 ML IVP ONE (20:29)
[2017-10-01] MEDS: IBUPROFEN 800 MG TABLET PO PRN ×2 (05:08→13:19)
--- NOTE | 2017-10-01 08:11 | OB/GYN Progress Note ---
OB-PP Progress Note - General PPD1 Maternal Group B Strep: Negative Maternal blood type: A+ Maternal Rubella Status: Immune - Subjective Date: 10/01/17 Lochia: Minimal Pain: controlled Voiding: voiding Nausea or Vomiting Present: No - Objective Vital Signs: Last Vital Signs Temp 98.1 F 10/01/17 01:03 Pulse 52 L 10/01/17 01:03 Resp 18 10/01/17 01:03 BP 99/63 10/01/17 01:03 Pulse Ox 98 09/30/17 08:52 Urine Output: good General: alert and oriented Abdomen: fundus firm, non-tender Extremities: non-tender Edema: none Laboratory: Laboratory Results - last 24 hr 09/30/17 09:14 WBC 7.2 RBC 4.23 Hgb 12.7 Hct 38.0 MCV 89.8 MCH 30.0 MCHC 33.4 RDW Std Deviation 41.5 Plt Count 169 MPV 11.5 - Assessment Assessment: SP, - Plan Plan: routine care
[2017-10-01 08:14] VITALS: RESP 16; TEMP 98.4
[2017-10-01] MEDS ORDERED: DOCUSATE CALCIUM 240 MG CAPSULE PO SCH (09:00)
--- NOTE | 2017-10-01 09:15 | Labor and Delivery Note ---
DATE OF DELIVERY 09/30/2017 DELIVERY NOTE This is a G5, P1 at term who presented to Labor & Delivery with spontaneous rupture of membranes and regular painful contractions. She had a spontaneous vaginal delivery of a viable female - name "Dina" with weight of 3295 g, of 7/9. The baby was in vertex position, delivered over intact perineum without any lacerations. Terminal meconium was noted. She had epidural anesthesia and an estimated blood loss of 200 ml. Spontaneous vaginal delivery of the placenta without difficulty. Again, no lacerations were noted. The patient did have an IUPC during labor secondary to slow progression and asynclitism which resolved on its own. Mother and infant were doing well and remained in the labor room after delivery. MAIRA
--- NOTE | 2017-10-01 17:41 | Anesthesia Postoperative Note ---
- Date and Time Date: 10/01/17 Time: 17:41 - Status Patient Participated in Evaluation: Patient Participated in Person Vital Signs: Temperature 98.4 F 10/01/17 08:14 Pulse Rate 74 10/01/17 08:14 Respiratory Rate 16 10/01/17 08:14 Blood Pressure 109/69 10/01/17 08:14 Pulse Oximetry 98 09/30/17 08:52 Respiratory Function: Airway Patent Cardiovascular Function: Regular Pulse Mental Status: Alert and Oriented Pain Intensity: 2 Hydration: Taking PO Fluids Complications During Recover: None Apparent - Follow-Up Instructions Instructions: Per Surgeon
[2017-10-01 18:06] VITALS: BP 119/69; PULSE 88; O2SAT 97
== END 2017-10-01 20:30 | disposition home or self-care (01) | DRG 775 ==
LOC: OBOBS 08:18 → MC 08:26 → OBOBS 08:40 → MC 08:41
PROVIDERS: ADMIT Obstetrics & Gynecology; ATTEND Obstetrics & Gynecology